=== PATIENT | male | born 1975 | race Caucasian/White ===

== ENCOUNTER → 2024-09-27 | Outpatient (CLI) | payer OTHER, SELFPAY ==
[2024-09-27 15:03] LABS: Collection Type, Urine Clean Catch; Squamous Epithelial Cell,Urine 0 /hpf (0-5)
[2024-09-27 15:41] LABS: Basophils # (Auto) 0.1 Thou/mm3 (0.0-0.2); Basophils % (Auto) 1 % (0-2.5); Eosinophils # (Auto) 0.1 Thou/mm3 (0.0-0.5); Eosinophils % (Auto) 2 % (0-10); Hematocrit 45.1 % (41.0-53.0); Hemoglobin 15.5 g/dL (13.5-16.0); Immature Granulocytes % (Auto) 0 % (0-0); Immature Granulocytes Auto 0.01 Thou/mm3 (0.00-0.00); Lymphocytes # (Auto) 2.5 Thou/mm3 (1.0-4.8); Lymphocytes % (Auto) 33 % (10-50); Mean Corpuscular HGB Conc 34.4 g/dl (31.0-37.0); Mean Corpuscular Hemoglobin 29.9 pg (25.0-35.0); Mean Corpuscular Volume 87 fL (80-100); Monocytes # (Auto) 0.5 Thou/mm3 (0.0-0.8); Monocytes % (Auto) 6 % (0-12); Neutrophils # (Auto) 4.4 Thou/mm3 (1.8-7.7); Neutrophils % (Auto) 58 % (37-80); Nucleated Red Blood Cell % 0 /100 WBC (0); Platelet Count 319 Thou/mm3 (140-440); RDW Standard Deviation 43.9 fL (35.1-43.9); Red Blood Count 5.19 Miln/mm3 (4.50-5.90); White Blood Count 7.6 Thou/mm3 (3.8-10.6)
[2024-09-27 15:47] LABS: Bilirubin,Urine Negative (Negative); Blood,Urine Negative (Negative); Clarity,Urine Clear (Clear/Hazy); Color,Urine Colorless (Lt Yel-Yel); Culture Indicated,Urine Not Indicated; Glucose, Urine Negative (Negative); Ketones,Urine Negative (Negative); Leukocyte Esterase,Urine Negative (Negative); Nitrite,Urine Negative (Negative); PH,Urine 7.5 (5.0-7.0); Protein,Urine Negative (Neg - Trace); RBC,Urine 1 /hpf (0-3); Specific Gravity,Urine 1.007 (1.001-1.035); Urobilinogen,Urine Negative mg/dL (0.0-1.0); WBC,Urine < 1 /hpf (0-5)
[2024-09-27 15:51] LABS: Prostate Specific Antigen 0.34 ng/mL (0-4.00)
[2024-09-27 15:55] LABS: Alanine Aminotransferase 16 U/L (10-49); Albumin, Serum 4.8 gm/dL (3.5-5.0); Albumin/Globulin Ratio 2.2 (1.2-2.2); Alkaline Phosphatase 129 U/L (46-116); Anion Gap 9 (7-16); Aspartate Amino Transferase 22 U/L (0-34); BUN/Creatinine Ratio 9 Ratio (12-20); Bilirubin,Total 0.5 mg/dL (0.3-1.2); Blood Urea Nitrogen 7 mg/dL (9-23); Calcium 9.4 mg/dL (8.3-10.6); Calcium (Corrected) 9.4 mg/dL (8.5-10.1); Carbon Dioxide 28.3 mMol/L (20.0-31.0); Cardiac Risk Estimate 4.1 RATIO (4.0-6.7); Chloride 103 mMol/L (98-107); Cholesterol 217 mg/dL (132-200); Creatinine (Component) 0.8 mg/dL (0.6-1.3); Globulin 2.2 gm/dL (2.3-3.5); Glucose 89 mg/dL (74-106); HDL Cholesterol 53 mg/dL (40-60); LDL Cholesterol,Calculated 134 mg/dL (0-130); Osmolality,Calculated 276 (275-295); Potassium 3.7 mMol/L (3.4-5.1); Sodium 140 mMol/L (136-145); Thyroid Stimulating Hormone 1.11 uIU/mL (0.55-4.78); Triglycerides 150 mg/dL (30-150); Vitamin D 25 Hydroxy Total 19.9 ng/mL (7.3-40.2); eGFR > 60 See Note
[2024-09-27 15:57] LABS: Glucose Estimated Average 108 mg/dL (80-131); Hemoglobin A1C 5.4 % Hgb (4.8-6.0)
== END | disposition home or self-care (01) ==
LOC: COPL 14:21
PROVIDERS: PCP Family Medicine; Referring Provider Registered Nurse; Visit Provider Registered Nurse
DX: Z00.00 Encounter for general adult medical examination without abnormal findings (principal)
CPT/HCPCS: 36415; 80053; 80061; 81001; 82306; 83036; 84153; 84443; 85025

== ENCOUNTER 2025-02-25 15:04 | Inpatient (IN) | payer OTHER, SELFPAY ==
[2025-02-25] VITALS (8 sets, daily range): BP systolic 177–207; BP diastolic 89–118; PULSE 61–89; RESP 16–25; TEMP 36.1–37.2; O2SAT 95–98; BMI 38.7
--- NOTE | 2025-02-25 15:20 | EKG_ITS ---
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
--- NOTE | 2025-02-25 15:20 | XR_ITS ---
Examination: CT brain head without contrast. 2-D sagittal coronal reconstructions Date and time of exam:February 25, 2025 1608 hours INDICATIONS: Onset slurred speech beginning 3 days ago CTDI: vol (mGy):51.4 DLP: (mGycm):1100 Technique: Multiple CT axial sections of the brain have been obtained, 5 mm slice thickness. Contrast has not been administered. 2-D sagittal, coronal reconstructions have been obtained Low dose protocols were performed. One or more of the following dose reduction techniques were used; automated exposure control, adjustment of the mA and/or KV according to patient size, use of iterative reconstruction technique. Findings: No significant ventricular enlargement. 11 mm infarct which may be acute or subacute in the left basal ganglia Intra-axial or extra-axial hemorrhage density is not seen. No mass effect or midline shift Basal cisterns are not remarkable. Fourth ventricle is midline. Cranial vault intact. Impression: Negative for acute hemorrhage, mass effect or midline shift Nonhemorrhagic acute versus subacute 11 mm infarct in the left basal ganglia
--- NOTE | 2025-02-25 15:21 | PD.EDRME ---
Rapid Medical Screening Exam [facility] Arrival date/time: 02/25/25 15:04 50-year-old male with no known medical history presents to the emergency room with a chief complaint of slurred speech, right-sided facial numbness, aphasia x 1 week. at bedside states the signs and symptoms have been going on for the last week and have progressively gotten worse. Patient denies any unilateral numbness. I have greeted and performed a focused initial assessment of this patient. A comprehensive ED assessment and evaluation of the patient, analysis of all test results, and completion of the medical decision making process will be conducted by additional ED providers. Chief Complaint: Head Injury Time Seen by Provider: 02/25/25 15:15 Vital signs: Vital Signs Temperature 98.6 F 02/25/25 15:15 Pulse Rate 67 02/25/25 15:15 Respiratory Rate 18 02/25/25 15:15 Blood Pressure 178/96 H 02/25/25 15:15 Pulse Oximetry (%) 96 02/25/25 15:15 Oxygen Delivery Method Room Air 02/25/25 15:15 Vital signs reviewed by provider: Yes
[2025-02-25 15:40] LABS: Basophils # (Auto) 0.1 Thou/mm3 (0.0-0.2); Basophils % (Auto) 1 % (0-2.5); Eosinophils # (Auto) 0.3 Thou/mm3 (0.0-0.5); Eosinophils % (Auto) 3 % (0-10); Hematocrit 43.3 % (41.0-53.0); Hemoglobin 15.4 g/dL (13.5-16.0); Immature Granulocytes % (Auto) 0 % (0-0); Immature Granulocytes Auto 0.03 Thou/mm3 (0.00-0.00); Lymphocytes # (Auto) 2.8 Thou/mm3 (1.0-4.8); Lymphocytes % (Auto) 30 % (10-50); Mean Corpuscular HGB Conc 35.6 g/dl (31.0-37.0); Mean Corpuscular Hemoglobin 30.5 pg (25.0-35.0); Mean Corpuscular Volume 86 fL (80-100); Monocytes # (Auto) 0.4 Thou/mm3 (0.0-0.8); Monocytes % (Auto) 5 % (0-12); Neutrophils # (Auto) 5.7 Thou/mm3 (1.8-7.7); Neutrophils % (Auto) 61 % (37-80); Nucleated Red Blood Cell % 0 /100 WBC (0); Platelet Count 316 Thou/mm3 (140-440); RDW Standard Deviation 45.5 fL (35.1-43.9); Red Blood Count 5.05 Miln/mm3 (4.50-5.90); White Blood Count 9.3 Thou/mm3 (3.8-10.6)
[2025-02-25 15:52] LABS: Collection Type, Urine Clean Catch; Squamous Epithelial Cell,Urine 0 /hpf (0-5)
[2025-02-25 15:53] LABS: Partial Thromboplastin Time 28.3 Seconds (22.0-36.0); Prothrombin Time 10.9 Seconds (9.0-12.2)
[2025-02-25 15:55] LABS: B-Type Natriuretic Peptide 41 pg/mL (0-100)
[2025-02-25 16:01] LABS: Bacteria,Urine Rare; Bilirubin,Urine 1+ (Negative); Blood,Urine Negative (Negative); Clarity,Urine Clear (Clear/Hazy); Color,Urine Yellow (Lt Yel-Yel); Glucose, Urine Negative (Negative); Hyaline Casts,Urine 1 /hpf (0-1); Ketones,Urine Trace (Negative); Leukocyte Esterase,Urine Negative (Negative); Nitrite,Urine Negative (Negative); Protein,Urine 1+ (Neg - Trace); RBC,Urine 6 /hpf (0-3); Specific Gravity,Urine 1.035 (1.001-1.035); WBC,Urine 3 /hpf (0-5)
[2025-02-25 16:03] LABS: Amphetamine/Methamp Scrn,U Negative (Negative); Barbiturate Screen,Urine Negative (Negative); Benzodiazepines Screen,Urine Negative (Negative); Benzoylecgonine Screen, Ur Negative (Negative); Fentanyl Screen,Urine Negative (Negative); Opiate Screen,Urine Negative (Negative); THC Screen,Urine Negative (Negative)
[2025-02-25 16:15] LABS: Alanine Aminotransferase 21 U/L (10-49); Albumin, Serum 4.4 gm/dL (3.5-5.0); Albumin/Globulin Ratio 1.7 (1.2-2.2); Alkaline Phosphatase 135 U/L (46-116); Anion Gap 10 (7-16); Aspartate Amino Transferase 22 U/L (0-34); BUN/Creatinine Ratio 9 Ratio (12-20); Bilirubin,Total 0.6 mg/dL (0.3-1.2); Blood Urea Nitrogen 10 mg/dL (9-23); Calcium 8.3 mg/dL (8.3-10.6); Calcium (Corrected) 8.3 mg/dL (8.5-10.1); Carbon Dioxide 28.2 mMol/L (20.0-31.0); Chloride 107 mMol/L (98-107); Creatinine (Component) 1.1 mg/dL (0.6-1.3); Estimated Creatinine Clearance 91.9 mL/min (>60); Globulin 2.6 gm/dL (2.3-3.5); Glucose 127 mg/dL (74-106); Osmolality,Calculated 289 (275-295); Potassium 3.5 mMol/L (3.4-5.1); Sodium 145 mMol/L (136-145); eGFR > 60 See Note
[2025-02-25 16:20] LABS: Troponin I 0.168 ng/mL (0.0-0.045)
--- NOTE | 2025-02-25 16:46 | PD.EDNEURO ---
Neuro Symptoms Deficit-RME/HPI General Chief Complaint: Head Injury Stated Complaint: LEFT FACIAL NUMBNESS / TINGLING X 2 DAYS; SLOW COG Time Seen by Provider: 02/25/25 15:15 Arrival date/time: 02/25/25 15:04 RME / HPI RME / HPI Narrative: 02/25/25 15:04 50-year-old male with no known medical history presents to the emergency room with a chief complaint of slurred speech, right-sided facial numbness, aphasia x 1 week. at bedside states the signs and symptoms have been going on for the last week and have progressively gotten worse. Patient denies any unilateral numbness. I have greeted and performed a focused initial assessment of this patient. A comprehensive ED assessment and evaluation of the patient, analysis of all test results, and completion of the medical decision making process will be conducted by additional ED providers. DR. PASCUAL MAIN ED EVALUATION: 50 year old male presents to the ED for evaluation of word-finding difficulties that began 3?4 days ago. His reports that due to their busy and long hour work schedules, they have limited interactions throughout the week. She first noticed on Friday that the patient was quieter than usual but attributed it to a possible bad day at work. On Friday, the patient remained unusually withdrawn, and on , he went golfing as planned without any reported concerns. Today, during their day off together, his noticed patient seemed off. She specifically noted difficulties with finding words and also noticed right-sided facial drooping. While in the ED, the patient reports only experiencing word-finding difficulties and denies any associated changes in speech fluency, vision, gait, or driving ability. He also denies any episodes of confusion or altered mental status. Patient denies any history of similar symptoms. He admits to tobacco use. Related Data Allergies Allergy/AdvReac Type Severity Reaction Status Date / Time No Known Allergies Allergy Verified 02/25/25 15:07 Review of Systems Review of Systems Systems Reviewed: All systems reviewed, normal except as documented Past Medical History Social History SMOKING STATUS: Never smoker Course Quality Measures none Orders Category Date Time Status Admit to Inpatient Status Routine Admission 02/25/25 17:52 Active Patient Condition Routine Admission 02/25/25 17:51 Ordered Aspiration precautions NOW Care 02/25/25 17:54 Active Pharm Tech now Care 02/25/25 17:51 Active Continuous Pulse Oximetry QSHIFT Care 02/25/25 17:51 Active EKG (ED ONLY) *Do not use* NOW Care 02/25/25 15:20 Completed MRI Screening NOW Care 02/25/25 17:57 Active NPO NOW Care 02/25/25 17:51 Active Neuro Check Q4H Care 02/25/25 17:53 Active Nurse Swallow Screen x1 Care 02/25/25 17:51 Active Sequential Compression Device QSHIFT Care 02/25/25 18:00 Active Consult to Neurology / Tele-Neurology Routine Cons 02/25/25 17:59 Active Referral Physical Therapy Routine Cons 02/25/25 18:00 Active Referral Speech Therapy Routine Cons 02/25/25 18:00 Active Diet NPO (NOW) Diet 02/25/25 17:51 Active CA echo doppler complete Routine Exams 02/25/25 17:[address] head/brain wo con Stat Exams 02/25/25 15:20 Completed EKG (ED Only) Stat Exams 02/25/25 15:20 Draft MR stroke protocol Stat Exams 02/25/25 17:57 Ordered B-Type Natriuretic Peptide Stat Lab 02/25/25 15:29 Completed CBC AM DRAW Lab 02/26/25 05:00 Ordered CBC AM DRAW Lab 02/27/25 05:00 Ordered CBC AM DRAW Lab 02/28/25 05:00 Ordered CBC Stat Lab 02/25/25 15:29 Completed CMP [Comprehensive Metabolic Panel] AM DRAW Lab 02/26/25 05:00 Ordered CMP [Comprehensive Metabolic Panel] AM DRAW Lab 02/27/25 05:00 Ordered CMP [Comprehensive Metabolic Panel] AM DRAW Lab 02/28/25 05:00 Ordered Comprehensive Metabolic Panel Stat Lab 02/25/25 15:29 Completed Drug Screen,Urine Stat Lab 02/25/25 15:42 Completed Glycohemoglobin w (eAG) Routine Lab 02/25/25 17:54 Ordered Lipid Panel Routine Lab 02/25/25 17:54 Ordered Magnesium AM DRAW Lab 02/26/25 05:00 Ordered Magnesium Stat Lab 02/25/25 15:29 Completed Partial Thromboplastin Time Stat Lab 02/25/25 15:29 Completed Phosphorous AM DRAW Lab 02/26/25 05:00 Ordered Phosphorous AM DRAW Lab 02/27/25 05:00 Ordered Phosphorous AM DRAW Lab 02/28/25 05:00 Ordered Prothrombin Time with INR Stat Lab 02/25/25 15:29 Completed Thyroid Stimulating Hormone Routine Lab 02/26/25 18:03 Ordered Troponin I Q6H Lab 02/25/25 17:54 Ordered Troponin I Q6H Lab 02/26/25 00:00 Ordered Troponin I Stat Lab 02/25/25 15:29 Completed Urinalysis Stat Lab 02/25/25 15:42 Completed Acetaminophen Tab [Tylenol Tab] Med 02/25/25 18:00 Active 650 mg PO Q6H PRN Aspirin [Ecotrin] Med 02/25/25 18:00 Active 81 mg PO QDAY Atorvastatin Calcium [Lipitor] Med 02/25/25 21:00 Active 40 mg PO HS Clopidogrel [Plavix] Med 02/26/25 09:00 Active 75 mg PO QDAY NIFEdipine [Procardia Xl] Med 02/26/25 09:00 Active 30 mg PO QDAY Ondansetron Inj [Zofran Inj] Med 02/25/25 17:51 Active 4 mg IV Q4HR PRN Ringers Lactated 1000 ml [Lactated Ringers] 1,000 ml Med 02/25/25 18:00 Active IV 80 mls/hr hydrALAZINE INJ [Apresoline Inj] Med 02/25/25 18:00 Discontinued 10 mg IV X1 ONE Code Status Routine Oth 02/25/25 17:51 Ordered Vital Signs Vital signs: Vital Signs Temperature 98.6 F 02/25/25 15:15 Pulse Rate 67 02/25/25 15:15 Respiratory Rate 18 02/25/25 15:15 Blood Pressure 178/96 H 02/25/25 15:15 Pulse Oximetry (%) 96 02/25/25 15:15 Oxygen Delivery Method Room Air 02/25/25 15:15 Pulse ox is 96% on room air which is adequate. Neuro Symptoms / Deficit MDM Narrative MDM Narrative:: Allie Currie am scribing for and in the presence of Dr. Pascual. Patient data External records reviewed:: [facility] previous records (No previous ED visits for review ) Clinical information provided by:: patient and spouse ( adds to hpi ) Social determinants that could affect healthcare access:: none Patient has the following chronic illnesses:: No chronic medical hx reported How is presenting disease/condition affected by chronic disease/condition?: no chronic disease Evaluation data The following diagnostics were reviewed and interpreted by me:: lab results, radiology exam(s) and EKG tracing(s) Lab and/or radiology exams considered but not ordered:: None Interpretation Summary: Ordering Physician: Portillo Dukes Date of Service: 02/25/25 Procedure(s): CT head/brain wo con Accession Number(s): [id number] cc: Portillo Dukes; Jose A Vazquez MD~ Examination: CT brain head without contrast. 2-D sagittal coronal reconstructions Date and time of exam:February 25, 2025 1608 hours INDICATIONS: Onset slurred speech beginning 3 days ago CTDI: vol (mGy):51.4 DLP: (mGycm):1100 Technique: Multiple CT axial sections of the brain have been obtained, 5 mm slice thickness. Contrast has not been administered. 2-D sagittal, coronal reconstructions have been obtained Low dose protocols were performed. One or more of the following dose reduction techniques were used; automated exposure control, adjustment of the mA and/or KV according to patient size, use of iterative reconstruction technique. Findings: No significant ventricular enlargement. 11 mm infarct which may be acute or subacute in the left basal ganglia Intra-axial or extra-axial hemorrhage density is not seen. No mass effect or midline shift Basal cisterns are not remarkable. Fourth ventricle is midline. Cranial vault intact. Impression: Negative for acute hemorrhage, mass effect or midline shift Nonhemorrhagic acute versus subacute 11 mm infarct in the left basal ganglia Dictated By: Jose A Vazquez MD Signed By: <Electronically signed by Jose A Vazquez MD in OV> 02/25/25 1623 Medications / Prescriptions Medications or Prescriptions considered but not ordered:: None Medication administrations:: Medication Administration History Acetaminophen (Acetaminophen 325 Mg Tablet) 650 mg PO Q6H PRN PRN Reason: PAIN OR FEVER > 100.4 Stop: 03/27/25 17:59 Aspirin (Aspirin Ec 81 Mg Tabec) 81 mg PO QDAY YISSEL Stop: 03/27/25 17:59 Atorvastatin Calcium (Atorvastatin Calcium 20 Mg Tablet) 40 mg PO HS YISSEL Stop: 03/27/25 20:59 Clopidogrel Bisulfate (Clopidogrel Bisulfate 75 Mg Tablet) 75 mg PO QDAY YISSEL Stop: 03/28/25 08:59 Lactated Ringer's (Lactated Ringers) 1,000 mls @ 80 mls/hr IV .[id number] [facility] Stop: 03/27/25 17:59 Nifedipine (Nifedipine Xl 30 Mg Tabcr) 30 mg PO QDAY [facility] Stop: 03/28/25 08:59 Ondansetron HCl (Ondansetron Inj 2 Mg/Ml Inj 2 Ml) 4 mg IV Q4HR PRN PRN Reason: NAUSEA OR VOMITING Stop: 03/27/25 17:50 Discontinued Medications Hydralazine HCl (Hydralazine Inj 20 Mg/Ml Vial) 10 mg IV X1 ONE Stop: 02/25/25 18:01 See above Consultations Consultation(s) initiated? (list below): Yes Consultation #1 (Physician, Specialty, Details): I spoke with resident working with Dr. Meza. Discussed patients PMHx, HPI, ED course, exam findings, labs, and radiology results. Hospitalist team will come evaluate the patient in the ED. Time: 17:03 Diagnosis Neuro Differential Diagnosis: subarachnoid hemorrhage, cerebrovascular accident and transient cerebral ischemia Most likely diagnosis given after review of the tests above:: Basal ganglia infarct Admission Indicated Admission indicated?: indicated Admission Request Was there a request for admission?: Yes Admission Attestation Admission request attestation: Discussed case with [] from Hospitalist service regarding admission. Discussed patients ED course, exam findings, labs, and radiology results. The Hospitalist [agrees,declines] to accept the patient for admission. Disposition Plan Disposition Plan: Admit Critical Care Time Critical Care Time Critical Care Time: Yes Total Critical Care Time (min.): 35 Attestation: Reviewed with hospitalist team Discharge Plan Plan Patient Disposition: Admit Acute Care w/in Hospital Patient condition on transfer: Stable Problem List Clinical Impression: Basal ganglia infarction Patient/Caregiver Discharge Instructions Print Language: Kiswahili Stand Alone Forms: [facility]kie Award Info., Patient Portal Info Letter
--- NOTE | 2025-02-25 17:13 | PC.NURSE ---
PATIENT CAME TO ED WITH C/O HAVING APHASIA THAT STARTED 3 DAYS AGO. PATIENT STATED SHE ALSO NOTICED A SLIGHT DROOP ON HIS FACE. PATIENT STATES HE HAS HX OF HTN BUT DOES NOT TAKE ANY MEDS. PATIENT GCS 15 IN NO SIGNS OF ACUTE DISTRESS AT THIS TIME. IN ROOM ON [facility] CONNECTED TO MONITORS. ED DR BAUTISTA SPEAK WITH PATIENT.
--- NOTE | 2025-02-25 17:20 | PC.NURSE ---
DR BRAR AT BEDSIDE
--- NOTE | 2025-02-25 18:04 | ESHP_ITS ---
Documentation for date of: 02/25/25 [facility] History of Present Illness History of present illness: Romulo Gusman is a 50-year-old male with a past medical history of hypertension not on medications and hyperlipidemia who presents to the ED on 02/25 after experiencing difficulty finding words and fatigue that started two days ago. Patient's at bedside to help provide additional history. Patient states that while at work, he began to experience difficulty word finding and his co- workers state with an associated headache and that he had become more quiet after difficulty with word finding started. He denies any paresthesias, motor symptoms, or facial droop. However, states that she may have noticed some facial droop today while the patient was talking to her and because difficulty with word finding got worse, she brought him to the ED. In the ED, vital signs significant for BP 207/118, HR 67, RR 18, afebrile, and breathing comfortably on room air. CBC and chem panel largely unremarkable, other than mildly elevated ALP of 135 and troponin 0.168. Urine toxicology negative. UA showed 1+ protein, 1+ bilirubin, and rare bacteria. CT head significant for nonhemorrhagic acute versus subacute 11 mm infarct in the left basal ganglia. EKG showed NSR. PMHx: hypertension, hyperlipidemia Medications: none FHx: N/A, patient was adopted SHx: smokes cigarettes and drinks beers socially on weekends, denies illicit drug use Review of Systems Review of Systems Systems Reviewed: All systems reviewed, normal except as documented Exam Vital Signs Temp Pulse Resp BP Pulse Ox O2 Del Method 98.5 F 66 18 183/102 H 98 Room Air 02/25/25 16:52 02/25/25 16:52 02/25/25 16:52 02/25/25 16:52 02/25/25 16:52 02/25/25 16:52 Narrative Exam General: AOx3, no acute distress, able to speak full sentences but difficulty with word finding HEENT: NC/AT, mucous membranes moist, bilateral sclera anicteric Cardiovascular: regular rate and rhythm, S1/S2 present, no murmurs appreciated Pulmonary: clear to auscultation bilaterally, no rales/rhonchi/wheezes Abdominal: soft, non-tender, non-distended, no rebound/guarding, normal bowel sounds present Musculoskeletal: normal ROM, no peripheral edema Skin: warm and dry, intact, no rashes Neuro: CN II-XII intact, no focal deficits Results: Labs 02/26/25 04:40 02/26/25 04:40 Labs: Short CBC 02/25/25 Range/Units 15:29 WBC 9.3 (3.8-10.6) Thou/mm3 Hgb 15.4 (13.5-16.0) g/dL Hct 43.3 (41.0-53.0) % Plt Count 316 (140-440) Thou/mm3 BMP 02/25/25 15:29 Sodium 145 Potassium 3.5 Chloride 107 Carbon Dioxide 28.2 BUN 10 Creatinine 1.1 Glucose 127 H Calcium 8.3 Cardiac Enzymes 02/25/25 Range/Units 15:29 Troponin I 0.168 H* (0.0-0.045) ng/mL Liver Function 02/25/25 Range/Units 15:29 Total Bilirubin 0.6 (0.3-1.2) mg/dL AST 22 (0-34) U/L ALT 21 (10-49) U/L Alkaline Phosphatase 135 H (46-116) U/L Albumin 4.4 (3.5-5.0) gm/dL Urine 02/25/25 Range/Units 15:42 Urine Color Yellow (Lt Yel-Yel) Urine Clarity Clear (Clear/Hazy) Urine pH 6.0 (5.0-7.0) Ur Specific [place] 1.035 (1.001-1.035) Urine Protein 1+ A (Neg - Trace) Urine Glucose (UA) Negative (Negative) Quality Measures Quality Measures none Medications Home Medications and Allergies Home Medications ?Medication ?Instructions ?Recorded ?Confirmed ?Type No Known Home Medications 02/25/25 0512/21 History Allergies Allergy/AdvReac Type Severity Reaction Status Date / Time No Known Allergies Allergy Verified 02/25/25 15:07 Visit Medications Aspirin (Aspirin Ec 81 Mg Tabec) 81 mg PO QDAY YISSEL Stop: 03/27/25 17:59 Atorvastatin Calcium (Atorvastatin Calcium 20 Mg Tablet) 40 mg PO HS [facility] Stop: 03/27/25 20:59 Clopidogrel Bisulfate (Clopidogrel Bisulfate 75 Mg Tablet) 75 mg PO QDAY YISSEL Stop: 03/28/25 08:59 Nifedipine (Nifedipine Xl 30 Mg Tabcr) 30 mg PO QDAY YISSEL Stop: 03/28/25 08:59 Ondansetron HCl (Ondansetron Inj 2 Mg/Ml Inj 2 Ml) 4 mg IV Q4HR PRN PRN Reason: NAUSEA OR VOMITING Stop: 03/27/25 17:50 Discontinued Medications Hydralazine HCl (Hydralazine Inj 20 Mg/Ml Vial) 10 mg IV X1 ONE Stop: 02/25/25 18:01 Assessment & Plan Plan Romulo Gusman is a 50-year-old male with a past medical history of hypertension not on medications and hyperlipidemia who presents to the ED on 02/25 after experiencing difficulty finding words and fatigue that started two days ago. Found to have acute/subacute infarct in left basal ganglia on CT head and admitted for further work-up. #CVA #Subacute infarct of left basal ganglia Presents with difficulty finding words and fatigue that started two days ago. CT head showed subacute infarct of left basal ganglia. Also presented with hypertensive crisis with BP of 200s/100s upon evaluation in ED and suspect that may have likely played part in patient's presentation. - In-house neurology consulted, appreciate recommendations - MRI brain - Aspirin 81 mg daily, plavix 75 mg daily, atorvastatin 80 mg daily - LR at 80 cc/hr - Follow-up lipid panel, A1c, TSH - Follow-up cardiac echo - If pass nurse bedside swallow can give PO meds - Aspiration precautions - Neurocheck q4h - NPO until speech evaluation - Physical therapy #Hypertensive crisis #History of hypertension, not on medications Presented with BP 200s/100s and troponins 0.168 with slight uptrend to 0.170. Gave hydralazine 10 mg IV x1 - Goal blood pressure of 160-180 - Nifedipine 30 mg PO daily starting 02/26 #Hyperlipidemia - Atorvastatin 80 mg daily as above Hospital management: Disposition: med tele, pending neuro recs and MRI brain Fluids: LR 80 cc/hr Diet: NPO until speech evaluation Lines: PIV DVT prophylaxis: SCDs GI prophylaxis: not indicated [place]: none CODE STATUS: full code ----- Plan discussed with attending physician Dr. Susana Crane MD PGY-1 Internal Medicine Attending Provider Attestation/Addendum I reviewed labs, imaging, EKG, home medications and prior available records. Face to face evaluation was performed by me. I have personally examined the patient and discussed assessment and plan with the IM team. I reviewed the resident note and agree with the plan with exceptions as below. CVA symptoms, secondary to stroke versus hypertensive encephalopathy Slurred speech Facial droop Left basal ganglia CVA Non-STEMI Hypertensive urgency Start aspirin, Plavix, and atorvastatin Start antihypertensive treatment with SBP goal of 160-180 Trend troponin Follow-up MRI Follow-up echocardiogram PT/OT evaluation Neurology consulted
[2025-02-25] MEDS: ASPIRIN EC 81 MG TABEC PO (18:11)
[2025-02-25] MEDS: hydrALAZINE INJ 20 MG/ML VIAL 10 MG IV (18:11)
[2025-02-25] MEDS: RINGERS LACTATED 1000 ML 1,000 ML 80 ML IV (18:12)
[2025-02-25 18:59] LABS: Glucose Estimated Average 111 mg/dL (80-131); Hemoglobin A1C 5.5 % Hgb (4.8-6.0)
[2025-02-25 19:21] LABS: Cardiac Risk Estimate 4.4 RATIO (4.0-6.7); Cholesterol 211 mg/dL (132-200); HDL Cholesterol 48 mg/dL (40-60); LDL Cholesterol,Calculated 111 mg/dL (0-130); Triglycerides 261 mg/dL (30-150)
[2025-02-25] MEDS: ATORVASTATIN CALCIUM 20 MG TABLET 80 MG PO (20:37)
--- NOTE | 2025-02-25 23:58 | VVCONSULT_ITS ---
Telemedicine visit statement This visit was conducted with the use of interactive audio and video telecommunications system that permits real time communication between the patient and the provider. Patient's verbal consent for virtual visit was obtained on 02/25/25 at 2358. History of Present Illness History of Present Illness History of present illness: Mr. Gusman is a 50-year-old male with hypertension, hyperlipidemia presented to the ER with word finding difficulty and fatigue that started 2 days ago. When he was at work, he began to experience word finding difficulty associated with a headache. His coworkers have noticed that he has become more quiet after struggling to find words. Denies any paresthesias or weakness of upper or lower extremities or facial droop or dizziness or nausea vomiting. He denies any chest pain or shortness of breath. However his has noticed some facial droop today. As the symptoms persisted, patient was brought to the ER to be evaluated. Workup in the ER: Vital signs significant for BP 207/118, HR 67, RR 18, afebrile, and breathing comfortably on room air. Labs: CBC and chem panel:unremarkable, other than mildly elevated ALP of 135 and troponin 0.168. Urine toxicology negative. UA showed 1+ protein, 1+ bilirubin, and rare bacteria. Imaging: CT head significant for nonhemorrhagic acute versus subacute 11 mm infarct in the left basal ganglia. EKG showed NSR. Neurology was consulted to evaluate further. Patient got admitted to telemetry for further workup and management of acute CVA Past Medical History Social History SMOKING STATUS: Never smoker TeleMedicine ROS Pertinent Review of Systems Systems Reviewed: All systems reviewed, normal except as documented Meds Home Medications and Allergies Home Medications ?Medication ?Instructions ?Recorded ?Confirmed ?Type No Known Home Medications 02/25/25 05/0 12/21 History Allergies Allergy/AdvReac Type Severity Reaction Status Date / Time No Known Allergies Allergy Verified 02/25/25 15:07 Virtual exam Vital Signs Temp Pulse Resp BP Pulse Ox O2 Del Method 96.9 F 64 20 189/111 H 96 Room Air 02/25/25 20:36 02/25/25 20:36 02/25/25 20:36 02/25/25 20:36 02/25/25 20:36 02/25/25 20:36 Results Labs 02/25/25 15:29 02/25/25 15:29 Labs: Short CBC 02/25/25 Range/Units 15:29 WBC 9.3 (3.8-10.6) Thou/mm3 Hgb 15.4 (13.5-16.0) g/dL Hct 43.3 (41.0-53.0) % Plt Count 316 (140-440) Thou/mm3 BMP 02/25/25 15:29 Sodium 145 Potassium 3.5 Chloride 107 Carbon Dioxide 28.2 BUN 10 Creatinine 1.1 Glucose 127 H Calcium 8.3 Cardiac Enzymes 02/25/25 02/25/25 Range/Units 15:29 18:32 Troponin I 0.168 H* 0.170 H* (0.0-0.045) ng/mL Liver Function 02/25/25 Range/Units 15:29 Total Bilirubin 0.6 (0.3-1.2) mg/dL AST 22 (0-34) U/L ALT 21 (10-49) U/L Alkaline Phosphatase 135 H (46-116) U/L Albumin 4.4 (3.5-5.0) gm/dL Urine 02/25/25 Range/Units 15:42 Urine Color Yellow (Lt Yel-Yel) Urine Clarity Clear (Clear/Hazy) Urine pH 6.0 (5.0-7.0) Ur Specific [place] 1.035 (1.001-1.035) Urine Protein 1+ A (Neg - Trace) Urine Glucose (UA) Negative (Negative) Assessment & Plan Problem List (1) Basal ganglia infarction: Status: Acute Assessment and plan: Patient presented with a disfluency,, facial droop and slurred speech CT head showed acute infarction involving the left basal ganglia Continue with close monitoring with frequent neurochecks Rest of the workup including MRI brain, echocardiogram, lipid panel Continue with aspirin 81 mg, Plavix 75 mg and statin. Continue with permissive blood pressure control for 24 hours Speech therapy evaluation and management (2) Hypertension: Status: Chronic Assessment and plan: Continue with permissive blood pressure control for another 24 hours (3) Hyperlipidemia: Status: Chronic Assessment and plan: Continue with statin Follow-up with a lipid panel
[2025-02-26] VITALS (7 sets, daily range): BP systolic 150–181; BP diastolic 92–119; PULSE 60–72; RESP 17–21; TEMP 36.1–36.7; O2SAT 96–98; BMI 37.8
--- NOTE | 2025-02-26 | XR_ITS ---
Examinations: MRI Brain without intravenous contrast. MRA brain without intravenous contrast. MRA carotids without intravenous contrast 3-D vascular reconstructions Date and time of exam: February 26, 2025, 1633 hours INDICATIONS: Onset focal neurologic deficits, generalized body weakness, facial droop, difficulty finding words beginning yesterday Technique: Multiple axial and sagittal images of the brain have been obtained MRA brain carotid images without contrast obtained, including 3-D postprocessing, vascular maximum intensity projection images Findings: [place] is not enlarged. The optic chiasm and infundibular stalk are not remarkable. Prepontine and interpeduncular cisterns are not enlarged. No localized enlargement of the medulla or emily. Fourth ventricle and cerebellar tonsils normal in position. Subacute hemorrhage is not seen. Fourth ventricle is midline. Mass in the cerebellopontine angle region is not evident. 7th and 8th nerve complexes exhibits symmetry. Globes are symmetrical with no retro-orbital mass. Increased white matter signal moderate Diffusion-weighted images demonstrate 15 mm focus restricted diffusion left basal ganglia Mass-effect upon the ventricular system is not identified. MRA carotid images no significant carotid stenoses. MRA brain images no cerebral large vessel arterial occlusions Impression: 15 mm acute nonhemorrhagic infarct left basal ganglia
[2025-02-26 01:15] LABS: Troponin I 0.175 ng/mL (0.0-0.045)
[2025-02-26 05:37] LABS: Basophils # (Auto) 0.1 Thou/mm3 (0.0-0.2); Basophils % (Auto) 1 % (0-2.5); Eosinophils # (Auto) 0.3 Thou/mm3 (0.0-0.5); Eosinophils % (Auto) 4 % (0-10); Hematocrit 45.2 % (41.0-53.0); Hemoglobin 15.7 g/dL (13.5-16.0); Immature Granulocytes % (Auto) 0 % (0-0); Immature Granulocytes Auto 0.03 Thou/mm3 (0.00-0.00); Lymphocytes # (Auto) 2.9 Thou/mm3 (1.0-4.8); Lymphocytes % (Auto) 38 % (10-50); Mean Corpuscular HGB Conc 34.7 g/dl (31.0-37.0); Mean Corpuscular Hemoglobin 30.7 pg (25.0-35.0); Mean Corpuscular Volume 88 fL (80-100); Monocytes # (Auto) 0.6 Thou/mm3 (0.0-0.8); Monocytes % (Auto) 7 % (0-12); Neutrophils # (Auto) 3.9 Thou/mm3 (1.8-7.7); Neutrophils % (Auto) 50 % (37-80); Nucleated Red Blood Cell % 0 /100 WBC (0); Platelet Count 273 Thou/mm3 (140-440); RDW Standard Deviation 46.8 fL (35.1-43.9); Red Blood Count 5.12 Miln/mm3 (4.50-5.90); White Blood Count 7.7 Thou/mm3 (3.8-10.6)
[2025-02-26 05:59] LABS: Alanine Aminotransferase 19 U/L (10-49); Albumin, Serum 4.4 gm/dL (3.5-5.0); Albumin/Globulin Ratio 1.8 (1.2-2.2); Alkaline Phosphatase 121 U/L (46-116); Anion Gap 9 (7-16); Aspartate Amino Transferase 20 U/L (0-34); BUN/Creatinine Ratio 12 Ratio (12-20); Bilirubin,Total 1.1 mg/dL (0.3-1.2); Blood Urea Nitrogen 11 mg/dL (9-23); Calcium 8.5 mg/dL (8.3-10.6); Calcium (Corrected) 8.5 mg/dL (8.5-10.1); Chloride 107 mMol/L (98-107); Creatinine (Component) 0.9 mg/dL (0.6-1.3); Estimated Creatinine Clearance 110.9 mL/min (>60); Globulin 2.4 gm/dL (2.3-3.5); Glucose 104 mg/dL (74-106); Osmolality,Calculated 289 (275-295); Potassium 3.5 mMol/L (3.4-5.1); Sodium 146 mMol/L (136-145); Total Protein 6.8 gm/dL (5.7-8.2); eGFR > 60 See Note
[2025-02-26 08:50] LABS: Troponin I 0.171 ng/mL (0.0-0.045)
--- NOTE | 2025-02-26 09:11 | ESPR_ITS ---
Documentation for date of: 02/26/25 Subjective Subjective Interval history: No acute overnight events. Seen and examined at bedside in telemetry and patient does not have any complaints. Denies new onset paresthesias, muscle weakness, facial droop, worsening of disfluency. Vital signs stable, CBC unremarkable, CHEM panel showed A1c of 5.5%, lipid panel showed triglycerides 261, cholesterol 211, LDL 111, HDL 48, and troponin peaked at 0.175 since downtrended. Pending echo, MRI, speech evaluation, and physical therapy. Exam Vital Signs Temp Pulse Resp BP Pulse Ox O2 Del Method 97.2 F 66 18 150/115 H 98 Room Air 02/26/25 08:00 02/26/25 08:00 02/26/25 08:00 02/26/25 08:00 02/26/25 08:00 02/26/25 08:00 Narrative Exam General: AOx3, no acute distress, able to speak full sentences but difficulty with word finding HEENT: NC/AT, mucous membranes moist, bilateral sclera anicteric Cardiovascular: regular rate and rhythm, S1/S2 present, no murmurs appreciated Pulmonary: clear to auscultation bilaterally, no rales/rhonchi/wheezes Abdominal: soft, non-tender, non-distended, no rebound/guarding, normal bowel sounds present Musculoskeletal: normal ROM, no peripheral edema Skin: warm and dry, intact, no rashes Neuro: CN II-XII intact, no focal deficits Objective Labs 02/27/25 06:24 02/27/25 06:24 Labs: Laboratory Results - last 24 hr 02/25/25 02/25/25 02/25/25 15:29 15:42 18:32 WBC 9.3 RBC 5.05 Hgb 15.4 Hct 43.3 MCV 86 MCH 30.5 MCHC 35.6 RDW Std Deviation 45.5 H Plt Count 316 Neut % (Auto) 61 Lymph % (Auto) 30 [place] % (Auto) 5 Eos % (Auto) 3 Baso % (Auto) 1 Neut # (Auto) 5.7 Lymph # (Auto) 2.8 [place] # (Auto) 0.4 Eos # (Auto) 0.3 Baso # (Auto) 0.1 Immature Gran # (Auto) 0.03 H Absolute Nucleated RBC 0.00 Immature Gran % 0 Nucleated RBC % 0 PT 10.9 INR 1.0 APTT 28.3 Sodium 145 Potassium 3.5 Chloride 107 Carbon Dioxide 28.2 Anion Gap 10 BUN 10 Creatinine 1.1 Estim Creat Clear Calc 91.9 eGFR > 60 BUN/Creatinine Ratio 9 L Glucose [address] Glu mg/dL 111 Hemoglobin A1c 5.5 Calculated Osmolality 289 Calcium 8.3 Corrected Calcium 8.3 L Phosphorus Magnesium 2.0 Total Bilirubin 0.6 AST 22 ALT 21 Alkaline Phosphatase 135 H Troponin I 0.168 H* 0.170 H* B-Natriuretic Peptide 41 Total Protein 7.0 Albumin 4.4 Globulin 2.6 Albumin/Globulin Ratio 1.7 Triglycerides 261 H Cholesterol 211 H LDL Cholesterol, Calc 111 HDL Cholesterol 48 Cholesterol/HDL Ratio 4.4 Ur Collection Type Clean Catch Urine Color Yellow Urine Clarity Clear Urine pH 6.0 Ur Specific [place] 1.035 Urine Protein 1+ A Urine Glucose (UA) Negative Urine Ketones Trace Urine Blood Negative Urine Nitrite Negative Urine Bilirubin 1+ A Urine Urobilinogen (Auto) 4.0 Ur Leukocyte Esterase Negative Urine RBC 6 H Urine WBC 3 Ur Squamous Epith Cells 0 Urine Bacteria Rare Hyaline Casts 1 Urine Opiates Screen Negative Urine Fentanyl Screen Negative Ur Barbiturates Screen Negative U Amphetamin/Meth Scrn Negative U Benzodiazepines Scrn Negative U Cocaine Metab Screen Negative U Marijuana (THC) Screen Negative 02/26/25 02/26/25 02/26/25 00:22 04:40 08:15 WBC 7.7 RBC 5.12 Hgb 15.7 Hct 45.2 MCV 88 MCH 30.7 MCHC 34.7 RDW Std Deviation 46.8 H Plt Count 273 D Neut % (Auto) 50 Lymph % (Auto) 38 [place] % (Auto) 7 Eos % (Auto) 4 Baso % (Auto) 1 Neut # (Auto) 3.9 Lymph # (Auto) 2.9 [place] # (Auto) 0.6 Eos # (Auto) 0.3 Baso # (Auto) 0.1 Immature Gran # (Auto) 0.03 H Absolute Nucleated RBC 0.00 Immature Gran % 0 Nucleated RBC % 0 PT INR APTT Sodium 146 H Potassium 3.5 Chloride 107 Carbon Dioxide 30.0 Anion Gap 9 BUN 11 Creatinine 0.9 Estim Creat Clear Calc 110.9 eGFR > 60 BUN/Creatinine Ratio [address] Glu mg/dL Hemoglobin A1c Calculated Osmolality 289 Calcium 8.5 Corrected Calcium 8.5 Phosphorus 3.0 Magnesium 2.0 Total Bilirubin 1.1 D AST 20 ALT 19 Alkaline Phosphatase 121 H Troponin I 0.175 H* 0.171 H* B-Natriuretic Peptide Total Protein 6.8 Albumin 4.4 Globulin 2.4 Albumin/Globulin Ratio 1.8 Triglycerides Cholesterol LDL Cholesterol, Calc HDL Cholesterol Cholesterol/HDL Ratio Ur Collection Type Urine Color Urine Clarity Urine pH Ur Specific [place] Urine Protein Urine Glucose (UA) Urine Ketones Urine Blood Urine Nitrite Urine Bilirubin Urine Urobilinogen (Auto) Ur Leukocyte Esterase Urine RBC Urine WBC Ur Squamous Epith Cells Urine Bacteria Hyaline Casts Urine Opiates Screen Urine Fentanyl Screen Ur Barbiturates Screen U Amphetamin/Meth Scrn U Benzodiazepines Scrn U Cocaine Metab Screen U Marijuana (THC) Screen Quality Measures Quality Measures none Assessment & Plan Assessment Current Active Medications: Generic Name Dose Route Start Last Admin Trade Name Freq PRN Reason Stop Dose Admin Acetaminophen 650 mg 02/25/25 18:00 Acetaminophen 325 Mg Tablet PO 03/27/25 17:59 Q6H PRN PAIN OR FEVER > 100.4 Aspirin 81 mg 02/25/25 18:00 02/25/25 18:11 Aspirin Ec 81 Mg Tabec PO 03/27/25 17:59 81 mg QDAY YISSEL Administration Atorvastatin Calcium 80 mg 02/25/25 21:00 02/25/25 20:37 Atorvastatin Calcium 20 Mg Tablet PO 03/27/25 20:59 80 mg HS YISSEL Administration Clopidogrel Bisulfate 75 mg 02/26/25 09:00 Clopidogrel Bisulfate 75 Mg Tablet PO 03/28/25 08:59 QDAY YSISEL Lactated Ringer's 1,000 mls @ 80 mls/hr 02/25/25 18:00 02/25/25 18:12 Lactated Ringers IV 03/27/25 17:59 80 mls/hr .[id number] YISSEL Administration Nifedipine 30 mg 02/26/25 09:00 Nifedipine Xl 30 Mg Tabcr PO 03/28/25 08:59 QDAY YISSEL Ondansetron HCl 4 mg 02/25/25 17:51 Ondansetron Inj 2 Mg/Ml Inj 2 Ml IV 03/27/25 17:50 Q4HR PRN NAUSEA OR VOMITING Plan Romulo Gusman is a 50-year-old male with a past medical history of hypertension not on medications and hyperlipidemia who presents to the ED on 02/25 after experiencing difficulty finding words and fatigue that started two days ago. Found to have acute/subacute infarct in left basal ganglia on CT head and admitted for further work-up. #CVA #Subacute infarct of left basal ganglia Presents with difficulty finding words and fatigue that started two days ago. CT head showed subacute infarct of left basal ganglia. Also presented with hypertensive crisis with BP of 200s/100s upon evaluation in ED and suspect that may have likely played part in patient's presentation. - In-house neurology consulted, appreciate recommendations - Aspirin 81 mg daily, plavix 75 mg daily, atorvastatin 80 mg daily - Follow-up MRI brain, echo, TSH, speech evaluation, physical therapy - LR at 80 cc/hr - If pass nurse bedside swallow can give PO meds - Aspiration precautions - Neurocheck q4h #Hypertensive crisis #History of hypertension, not on medications Presented with BP 200s/100s and troponins 0.168 with slight uptrend to 0.170. Gave hydralazine 10 mg IV x1 - Goal blood pressure of 160-180 - Nifedipine 30 mg PO daily starting 02/26 #Hyperlipidemia - Atorvastatin 80 mg daily as above Hospital management: Disposition: med tele, pending MRI brain, echo Fluids: LR 80 cc/hr Diet: cardiac Lines: PIV DVT prophylaxis: SCDs GI prophylaxis: not indicated CODE STATUS: full code ----- Plan discussed with attending physician Dr. Susana Crane MD PGY-1 Internal Medicine Attending Provider Attestation/Addendum I reviewed labs, imaging, EKG, home medications and prior available records. Face to face evaluation was performed by me. I have personally examined the patient and discussed assessment and plan with the IM team. I reviewed the resident note and agree with the plan with exceptions as below. CVA symptoms, secondary to stroke versus hypertensive encephalopathy Slurred speech Facial droop Left basal ganglia CVA Non-STEMI Hypertensive urgency Start aspirin, Plavix, and atorvastatin Allowing permissive hypertension Trend troponin: Peaked Follow-up MRI Follow-up echocardiogram PT/OT evaluation Neurology consulted
[2025-02-26] MEDS: CLOPIDOGREL BISULFATE 75 MG TABLET PO (09:29)
[2025-02-26] MEDS: NIFEdipine XL 30 MG TABCR PO (09:29)
[2025-02-26] MEDS: ASPIRIN EC 81 MG TABEC PO (09:29)
[2025-02-26 10:32] LABS: Thyroid Stimulating Hormone 1.08 uIU/mL (0.55-4.78)
[2025-02-26 18:29] LABS: Thyroid Stimulating Hormone 0.64 uIU/mL (0.55-4.78)
[2025-02-26] MEDS: ATORVASTATIN CALCIUM 20 MG TABLET 80 MG PO (20:27)
--- NOTE | 2025-02-26 23:44 | PD.VPROG1 ---
Telemedicine visit statement This visit was conducted with the use of interactive audio and video telecommunications system that permits real time communication between the patient and the provider. Patient's verbal consent for virtual visit was obtained on 02/26/25 at 2344. Documentation for date of: 02/26/25 Subjective Subjective Interval history: Patient is in telemetry. No new symptoms reported or recurrence of similar symptoms after admission. No deficit on exam including the right upper and lower extremity strength and sensation. Denies any headache dizziness nausea vomiting. Virtual exam Vital Signs Temp Pulse Resp BP Pulse Ox O2 Del Method 98.0 F 68 17 160/92 H 96 Room Air 02/26/25 20:00 02/26/25 20:00 02/26/25 20:00 02/26/25 20:00 02/26/25 20:00 02/26/25 20:00 Objective Labs 02/26/25 04:40 02/26/25 04:40 Labs: Laboratory Results - last 24 hr 02/26/25 02/26/25 02/26/25 00:22 04:40 08:15 WBC 7.7 RBC 5.12 Hgb 15.7 Hct 45.2 MCV 88 MCH 30.7 MCHC 34.7 RDW Std Deviation 46.8 H Plt Count 273 D Neut % (Auto) 50 Lymph % (Auto) 38 [place] % (Auto) 7 Eos % (Auto) 4 Baso % (Auto) 1 Neut # (Auto) 3.9 Lymph # (Auto) 2.9 [place] # (Auto) 0.6 Eos # (Auto) 0.3 Baso # (Auto) 0.1 Immature Gran # (Auto) 0.03 H Absolute Nucleated RBC 0.00 Immature Gran % 0 Nucleated RBC % 0 Sodium 146 H Potassium 3.5 Chloride 107 Carbon Dioxide 30.0 Anion Gap 9 BUN 11 Creatinine 0.9 Estim Creat Clear Calc 110.9 eGFR > 60 BUN/Creatinine Ratio 12 Glucose 104 Calculated Osmolality 289 Calcium 8.5 Corrected Calcium 8.5 Phosphorus 3.0 Magnesium 2.0 Total Bilirubin 1.1 D AST 20 ALT 19 Alkaline Phosphatase 121 H Troponin I 0.175 H* 0.171 H* Total Protein 6.8 Albumin 4.4 Globulin 2.4 Albumin/Globulin Ratio 1.8 TSH 1.08 02/26/25 18:00 WBC RBC Hgb Hct MCV MCH MCHC RDW Std Deviation Plt Count Neut % (Auto) Lymph % (Auto) [place] % (Auto) Eos % (Auto) Baso % (Auto) Neut # (Auto) Lymph # (Auto) [place] # (Auto) Eos # (Auto) Baso # (Auto) Immature Gran # (Auto) Absolute Nucleated RBC Immature Gran % Nucleated RBC % Sodium Potassium Chloride Carbon Dioxide Anion Gap BUN Creatinine Estim Creat Clear Calc eGFR BUN/Creatinine Ratio Glucose Calculated Osmolality Calcium Corrected Calcium Phosphorus Magnesium Total Bilirubin AST ALT Alkaline Phosphatase Troponin I Total Protein Albumin Globulin Albumin/Globulin Ratio TSH 0.64 Assessment & Plan Problem List (1) Basal ganglia infarction: Status: Acute Assessment and plan: MRI brain confirmed acute ischemic infarction involving the left basal ganglia. Continue with aspirin along with Plavix for 21 days followed by Plavix alone along with statin for better prophylaxis. Will follow-up with rest of the workup (2) Hypertension: Status: Chronic Assessment and plan: Continue with permissive blood pressure control for another 24 hours (3) Hyperlipidemia: Status: Chronic Assessment and plan: Continue with statin Lipid panel: 111 LDL, 211 total cholesterol and triglycerides 181, HDL 48
[2025-02-27] VITALS: BP 148/91; PULSE 71; RESP 12; TEMP 36.4; O2SAT 98
[2025-02-27 04:00] VITALS: BP 157/98; PULSE 72; RESP 21; TEMP 36.5; O2SAT 99
[2025-02-27 05:33] VITALS: BMI 37.8
[2025-02-27 07:12] LABS: Basophils # (Auto) 0.1 Thou/mm3 (0.0-0.2); Basophils % (Auto) 1 % (0-2.5); Eosinophils # (Auto) 0.2 Thou/mm3 (0.0-0.5); Eosinophils % (Auto) 2 % (0-10); Hematocrit 46.7 % (41.0-53.0); Hemoglobin 15.9 g/dL (13.5-16.0); Immature Granulocytes % (Auto) 0 % (0-0); Immature Granulocytes Auto 0.02 Thou/mm3 (0.00-0.00); Lymphocytes # (Auto) 2.2 Thou/mm3 (1.0-4.8); Lymphocytes % (Auto) 28 % (10-50); Mean Corpuscular Hemoglobin 30.2 pg (25.0-35.0); Mean Corpuscular Volume 89 fL (80-100); Monocytes # (Auto) 0.4 Thou/mm3 (0.0-0.8); Monocytes % (Auto) 5 % (0-12); Neutrophils # (Auto) 4.9 Thou/mm3 (1.8-7.7); Neutrophils % (Auto) 63 % (37-80); Nucleated Red Blood Cell % 0 /100 WBC (0); Platelet Count 314 Thou/mm3 (140-440); RDW Standard Deviation 45.8 fL (35.1-43.9); Red Blood Count 5.26 Miln/mm3 (4.50-5.90); White Blood Count 7.7 Thou/mm3 (3.8-10.6)
[2025-02-27 07:32] LABS: Alanine Aminotransferase 18 U/L (10-49); Albumin, Serum 4.4 gm/dL (3.5-5.0); Albumin/Globulin Ratio 1.8 (1.2-2.2); Alkaline Phosphatase 120 U/L (46-116); Anion Gap 8 (7-16); Aspartate Amino Transferase 18 U/L (0-34); BUN/Creatinine Ratio 12 Ratio (12-20); Bilirubin,Total 1.1 mg/dL (0.3-1.2); Blood Urea Nitrogen 11 mg/dL (9-23); Calcium 8.6 mg/dL (8.3-10.6); Calcium (Corrected) 8.6 mg/dL (8.5-10.1); Carbon Dioxide 26.6 mMol/L (20.0-31.0); Chloride 108 mMol/L (98-107); Creatinine (Component) 0.9 mg/dL (0.6-1.3); Estimated Creatinine Clearance 110.9 mL/min (>60); Globulin 2.5 gm/dL (2.3-3.5); Glucose 104 mg/dL (74-106); Osmolality,Calculated 284 (275-295); Potassium 3.6 mMol/L (3.4-5.1); Sodium 143 mMol/L (136-145); Total Protein 6.9 gm/dL (5.7-8.2); eGFR > 60 See Note
[2025-02-27 08:00] VITALS: BP 158/97; PULSE 60; PULSE 72; RESP 16; TEMP 36.1; O2SAT 94
[2025-02-27] MEDS: CLOPIDOGREL BISULFATE 75 MG TABLET PO (09:08)
[2025-02-27] MEDS: ASPIRIN EC 81 MG TABEC PO (09:08)
--- NOTE | 2025-02-27 10:20 | PD.RESPRO ---
Documentation for date of: 02/27/25 Subjective Subjective Interval history: No acute overnight events. Seen and examined at bedside and patient does not have any complaints, including paresthesias, muscle weakness, facial droop, slurred speech. Patient and state that his speech has improved compared to prior. He has been able to walk around without difficulty. MRI brain confirm left basal ganglia infarct, currently pending echo and physical therapy evaluation. Per neuro recs will continue aspirin and Plavix for 21 days, and then Plavix alone afterwards along with statin. Also recommended to wait for echo prior to discharge. Exam Vital Signs Temp Pulse Resp BP Pulse Ox O2 Del Method 97.0 F 60 16 158/97 H 94 L Room Air 02/27/25 08:00 02/27/25 08:00 02/27/25 08:00 02/27/25 08:00 02/27/25 08:00 02/27/25 08:00 Narrative Exam General: AOx3, no acute distress, able to speak full sentences with disfluency but improved HEENT: NC/AT, mucous membranes moist, bilateral sclera anicteric Cardiovascular: regular rate and rhythm, S1/S2 present, no murmurs appreciated Pulmonary: clear to auscultation bilaterally, no rales/rhonchi/wheezes Abdominal: soft, non-tender, non-distended, no rebound/guarding, normal bowel sounds present Musculoskeletal: normal ROM, no peripheral edema Skin: warm and dry, intact, no rashes Neuro: CN II-XII intact, no focal deficits Objective Labs 02/28/25 04:40 02/28/25 04:40 Labs: Laboratory Results - last 24 hr 02/26/25 02/26/25 02/27/25 08:15 18:00 06:24 WBC 7.7 RBC 5.26 Hgb 15.9 Hct 46.7 MCV 89 MCH 30.2 MCHC 34.0 RDW Std Deviation 45.8 H Plt Count 314 D Neut % (Auto) 63 Lymph % (Auto) 28 [place] % (Auto) 5 Eos % (Auto) 2 Baso % (Auto) 1 Neut # (Auto) 4.9 Lymph # (Auto) 2.2 [place] # (Auto) 0.4 Eos # (Auto) 0.2 Baso # (Auto) 0.1 Immature Gran # (Auto) 0.02 H Absolute Nucleated RBC 0.00 Immature Gran % 0 Nucleated RBC % 0 Sodium 143 Potassium 3.6 Chloride 108 H Carbon Dioxide 26.6 Anion Gap 8 BUN 11 Creatinine 0.9 Estim Creat Clear Calc 110.9 eGFR > 60 BUN/Creatinine Ratio 12 Glucose 104 Calculated Osmolality 284 Calcium 8.6 Corrected Calcium 8.6 Phosphorus 3.0 Total Bilirubin 1.1 AST 18 ALT 18 Alkaline Phosphatase 120 H Total Protein 6.9 Albumin 4.4 Globulin 2.5 Albumin/Globulin Ratio 1.8 TSH 1.08 0.64 Quality Measures Quality Measures none Assessment & Plan Assessment Current Active Medications: Generic Name Dose Route Start Last Admin Trade Name Freq PRN Reason Stop Dose Admin Acetaminophen 650 mg 02/25/25 18:00 Acetaminophen 325 Mg Tablet PO 03/27/25 17:59 Q6H PRN PAIN OR FEVER > 100.4 Aspirin 81 mg 02/25/25 18:00 02/27/25 09:08 Aspirin Ec 81 Mg Tabec PO 03/27/25 17:59 81 mg QDAY YISSLE Administration Atorvastatin Calcium 80 mg 02/25/25 21:00 02/26/25 20:27 Atorvastatin Calcium 20 Mg Tablet PO 03/27/25 20:59 80 mg HS YISSEL Administration Clopidogrel Bisulfate 75 mg 02/26/25 09:00 02/27/25 09:08 Clopidogrel Bisulfate 75 Mg Tablet PO 03/28/25 08:59 75 mg QDAY YISSEL Administration Nifedipine 60 mg 02/27/25 10:15 Nifedipine Xl 30 Mg Tabcr PO 03/29/25 10:14 QDAY YISSEL Ondansetron HCl 4 mg 02/25/25 17:51 Ondansetron Inj 2 Mg/Ml Inj 2 Ml IV 03/27/25 17:50 Q4HR PRN NAUSEA OR VOMITING Plan Romulo Gusman is a 50-year-old male with a past medical history of hypertension not on medications and hyperlipidemia who presents to the ED on 02/25 after experiencing difficulty finding words and fatigue that started two days ago. Found to have acute/subacute infarct in left basal ganglia on CT head and admitted for further work-up. #CVA #Subacute infarct of left basal ganglia Presents with difficulty finding words and fatigue that started two days ago. CT head showed subacute infarct of left basal ganglia. Also presented with hypertensive crisis with BP of 200s/100s upon evaluation in ED and suspect that may have likely played part in patient's presentation. MRI/MRA brain confirmed left basal ganglia infarct. ? In-house neurology consulted, appreciate recommendations ? Aspirin 81 mg daily and plavix 75 mg daily x21 days and then plavix only ? Atorvastatin 80 mg daily ? Follow-up echo, physical therapy ? Neurocheck q4h #Hypertensive crisis #History of hypertension, not on medications Presented with BP 200s/100s and troponins 0.168 with slight uptrend to 0.170 but have downtrended so no longer trending. ? Nifedipine 60 mg PO daily #Hyperlipidemia ? Atorvastatin 80 mg daily as above Hospital management: Disposition: med tele, pending echo Fluids: LR 80 cc/hr Diet: cardiac Lines: PIV DVT prophylaxis: SCDs GI prophylaxis: not indicated CODE STATUS: full code ----- Plan discussed with attending physician Dr. Susana Crane MD PGY-1 Internal Medicine Attending Provider Attestation/Addendum I reviewed labs, imaging, EKG, home medications and prior available records. Face to face evaluation was performed by me. I have personally examined the patient and discussed assessment and plan with the IM team. I reviewed the resident note and agree with the plan with exceptions as below. CVA symptoms, secondary to stroke versus hypertensive encephalopathy Slurred speech Facial droop Left basal ganglia CVA Non-STEMI Hypertensive urgency Start aspirin, Plavix, and atorvastatin Started nifedipine. Monitor BP Trend troponin: Peaked Follow-up MRI: Confirmed the left basal ganglia stroke Follow-up echocardiogram PT/OT evaluation Neurology consulted
[2025-02-27 12:00] VITALS: BP 159/93; PULSE 61; PULSE 65; RESP 19; TEMP 36.2; O2SAT 97
[2025-02-27 16:00] VITALS: BP 143/83; PULSE 62; PULSE 68; RESP 19; TEMP 36.4; O2SAT 96
[2025-02-27 20:00] VITALS: BP 164/101; PULSE 62; PULSE 65; RESP 21; TEMP 36.1; O2SAT 99
[2025-02-27] MEDS: ATORVASTATIN CALCIUM 20 MG TABLET 80 MG PO (20:43)
--- NOTE | 2025-02-27 22:20 | ESPR_ITS ---
Documentation for date of: 02/27/25 Subjective Subjective Interval history: Patient was seen in telemetry today. No weakness, disfluency of language or dysarthria since admission. Tolerating oral diet well. Exam - Neurology Vital Signs Temp Pulse Resp BP Pulse Ox O2 Del Method 97.0 F 62 21 H 164/101 H 99 Room Air 02/27/25 20:00 02/27/25 20:00 02/27/25 20:00 02/27/25 20:00 02/27/25 20:00 02/27/25 20:00 Narrative Exam GENERAL APPEARANCE: Well hydrated, well-nourished in no acute distress. HEENT: Normocephalic, atraumatic, extraocular movements intact. Pupils: Equal reacting to light and accommodation NECK: Supple, no JVD or bruits.. CARDIOVASULAR: Heart: S1, S2 heard, regular without S3-S4 or murmur no rubs or gallops. LUNGS/CHEST: Clear to auscultation bilaterally. No rails, rhonchi, or wheezing. Normal inspection. ABDOMEN: Soft, nontender, with normal bowel sounds. No pulsatile masses. No rebound, rigidity, or guarding. Normal inspection and palpation. EXTREMITIES: Normal inspection and palpation. No edema, clubbing or cyanosis. SKIN: Warm and dry without rashes. Normal inspection. MUSCULOSKELETAL: No cervical, thoracic, lumbar or midline bony tenderness. Normal inspection. NEURO: Alert, awake and oriented x3. Cranial nerves: II through XII grossly intact. Speech and language: Normal with no dysarthria or dysphasia. Motor system: Tone and bulk: Normal: Strength: 5 out of 5 in all 4 extremities; No pronator drift noted. Deep tendon reflexes: 2+ bilaterally symmetrical. Plantar reflex: Downgoing bilaterally. Sensory system: Intact to all modalities of sensation bilaterally. Coordination: Intact to [id number] and [id number] test bilaterally. No ataxia, no dysmetria, or dysdiadochokinesia noted. No intention tremors noted. Gait: Normal. Toe, heel, tandem walk all are normal. [place]: Negative. No signs of meningeal irritation noted. PSYCHIATRIC: Normal mood and affect. Objective Labs 02/27/25 06:24 02/27/25 06:24 Labs: Laboratory Results - last 24 hr 02/27/25 06:24 WBC 7.7 RBC 5.26 Hgb 15.9 Hct 46.7 MCV 89 MCH 30.2 MCHC 34.0 RDW Std Deviation 45.8 H Plt Count 314 D Neut % (Auto) 63 Lymph % (Auto) 28 [place] % (Auto) 5 Eos % (Auto) 2 Baso % (Auto) 1 Neut # (Auto) 4.9 Lymph # (Auto) 2.2 [place] # (Auto) 0.4 Eos # (Auto) 0.2 Baso # (Auto) 0.1 Immature Gran # (Auto) 0.02 H Absolute Nucleated RBC 0.00 Immature Gran % 0 Nucleated RBC % 0 Sodium 143 Potassium 3.6 Chloride 108 H Carbon Dioxide 26.6 Anion Gap 8 BUN 11 Creatinine 0.9 Estim Creat Clear Calc 110.9 eGFR > 60 BUN/Creatinine Ratio 12 Glucose 104 Calculated Osmolality 284 Calcium 8.6 Corrected Calcium 8.6 Phosphorus 3.0 Total Bilirubin 1.1 AST 18 ALT 18 Alkaline Phosphatase 120 H Total Protein 6.9 Albumin 4.4 Globulin 2.5 Albumin/Globulin Ratio 1.8 Assessment & Plan Assessment and plan (1) Basal ganglia infarction: Status: Acute Assessment and plan: MRI brain confirmed left basal ganglia infarction. Continue with aspirin, Plavix and statin. Follow-up with rest of the workup including echocardiogram with bubble study (2) Hypertension: Status: Chronic Assessment and plan: Continue aggressive blood pressure management (3) Hyperlipidemia: Status: Chronic Assessment and plan: Continue with high-dose statin
[2025-02-28] VITALS (10 sets, daily range): BP systolic 140–179; BP diastolic 60–107; PULSE 60–93; RESP 13–23; TEMP 36.1–36.7; O2SAT 94–99; BMI 38.2; BMI 38.0
[2025-02-28 05:55] LABS: Basophils # (Auto) 0.1 Thou/mm3 (0.0-0.2); Basophils % (Auto) 1 % (0-2.5); Eosinophils # (Auto) 0.2 Thou/mm3 (0.0-0.5); Eosinophils % (Auto) 3 % (0-10); Hematocrit 45.2 % (41.0-53.0); Hemoglobin 15.7 g/dL (13.5-16.0); Immature Granulocytes % (Auto) 0 % (0-0); Immature Granulocytes Auto 0.01 Thou/mm3 (0.00-0.00); Lymphocytes # (Auto) 2.6 Thou/mm3 (1.0-4.8); Lymphocytes % (Auto) 31 % (10-50); Mean Corpuscular HGB Conc 34.7 g/dl (31.0-37.0); Mean Corpuscular Hemoglobin 30.7 pg (25.0-35.0); Mean Corpuscular Volume 88 fL (80-100); Monocytes # (Auto) 0.6 Thou/mm3 (0.0-0.8); Monocytes % (Auto) 7 % (0-12); Neutrophils # (Auto) 4.8 Thou/mm3 (1.8-7.7); Neutrophils % (Auto) 58 % (37-80); Nucleated Red Blood Cell % 0 /100 WBC (0); Platelet Count 306 Thou/mm3 (140-440); RDW Standard Deviation 45.5 fL (35.1-43.9); Red Blood Count 5.12 Miln/mm3 (4.50-5.90); White Blood Count 8.3 Thou/mm3 (3.8-10.6)
[2025-02-28 06:32] LABS: Alanine Aminotransferase 19 U/L (10-49); Albumin, Serum 4.3 gm/dL (3.5-5.0); Albumin/Globulin Ratio 1.8 (1.2-2.2); Alkaline Phosphatase 119 U/L (46-116); Anion Gap 11 (7-16); Aspartate Amino Transferase 16 U/L (0-34); BUN/Creatinine Ratio 18 Ratio (12-20); Blood Urea Nitrogen 14 mg/dL (9-23); Calcium 8.6 mg/dL (8.3-10.6); Calcium (Corrected) 8.6 mg/dL (8.5-10.1); Carbon Dioxide 27.2 mMol/L (20.0-31.0); Chloride 104 mMol/L (98-107); Creatinine (Component) 0.8 mg/dL (0.6-1.3); Estimated Creatinine Clearance 125.6 mL/min (>60); Globulin 2.4 gm/dL (2.3-3.5); Glucose 105 mg/dL (74-106); Osmolality,Calculated 283 (275-295); Phosphorous 3.9 mg/dL (2.4-5.1); Potassium 3.4 mMol/L (3.4-5.1); Sodium 142 mMol/L (136-145); Total Protein 6.7 gm/dL (5.7-8.2); eGFR > 60 See Note
[2025-02-28] MEDS: CLOPIDOGREL BISULFATE 75 MG TABLET PO (08:54)
[2025-02-28] MEDS: LOSARTAN POTASSIUM 25 MG TABLET PO (08:54)
[2025-02-28] MEDS: ASPIRIN EC 81 MG TABEC PO (08:54)
--- NOTE | 2025-02-28 09:20 | ECHO_ITS ---
Transthoracic Echo Report Ht (in): 66 Wt (lb): 237 Exam Location: Portable Status: Inpatient [employer] Counterperson: SHERRELL Mccain^^^^ Indications: Procedure Performed: BP: / HR: 64 Technical Quality: Fair MEASUREMENTS (Male / Female) Normal Values 2D ECHO LV Diastolic Diameter PLAX 5.9 cm 4.2 - 5.9 / 3.9 - 5.3 cm LV Systolic Diameter PLAX 4.0 cm IVS Diastolic Thickness 1.0 cm 0.6 - 1.0 / 0.6 - 0.9 cm LVPW Diastolic Thickness 0.9 cm 0.6 - 1.0 / 0.6 - 0.9 cm LV Relative Wall Thickness 0.3 LVOT Diameter 1.8 cm Aortic Root Diameter 3.7 cm LA Systolic Diameter LX 3.0 cm 3.0 - 4.0 / 2.7 - 3.8 cm LV Ejection Fraction MOD BP 47.4 % >= 55 % LV Cardiac Index MOD BP 2546.9 cm?/min?m? LV Ejection Fraction MOD 4C 52.5 % LV Cardiac Index MOD 4C 4170.2 cm?/min?m? LV Ejection Fraction 4C AL 52.8 % LV Cardiac Index 4C AL 4347.7 cm?/min?m? LV Ejection Fraction MOD 2C 43.3 % LV Cardiac Index MOD 2C 1550.5 cm?/min?m? LV Ejection Fraction 2C AL 47.3 % LV Cardiac Index 2C AL 1713.0 cm?/min?m? LA Volume Index 23.5 cm?/m? 16 - 28 cm?/m? DOPPLER AV Peak Velocity 114.5 cm/s AV Peak Gradient 5.2 mmHg AV Mean Gradient 2.5 mmHg AV Velocity Time Integral 19.5 cm LVOT Peak Velocity 65.8 cm/s LVOT Peak Gradient 1.7 mmHg LVOT Velocity Time Integral 14.6 cm LVOT Cardiac Index 1039.8 cm?/min?m? AV Area Cont Eq vti 1.9 cm? AV Area Cont Eq pk 1.5 cm? MV Area PHT 3.4 cm? Mitral E Point Velocity 42.1 cm/s Mitral A Point Velocity 58.3 cm/s Mitral E to A Ratio 0.7 LV E' Lateral Velocity 6.3 cm/s Mitral E to LV E' Lateral Ratio 6.6 LV E' Septal Velocity 5.4 cm/s Mitral E to LV E' Septal Ratio 7.8 TR Peak Velocity 207.0 cm/s TR Peak Gradient 17.1 mmHg PV Peak Velocity 103.0 cm/s PV Peak Gradient 4.2 mmHg RVOT Peak Velocity 62.8 cm/s FINDINGS Left Ventricle The left ventricular ejection fraction is mildly decreased, estimated at 45- 50%. Regional wall motion abnormalities are present. There is grade I diastolic dysfunction of the left ventricle (impaired relaxation pattern). Right Ventricle The right ventricle is normal in size and systolic function. The estimated right ventricular systolic pressure, 20 mmHg. Left Atrium The left atrium is normal by two-dimensional, color flow and Doppler imaging with no structural abnormalities, no thrombus formation present. Right Atrium The right atrium is normal by two-dimensional imaging, color flow and Doppler imaging with no structural abnormalities, no thrombus formation present. Atrial Septum The interatrial septum is normal to color flow Doppler and agitated saline imaging. Aorta The aorta is normal by two-dimensional, color flow and Doppler interrogation. Mitral Valve Mild mitral regurgitation. Mild mitral annular calcification. Aortic Valve The aortic valve is trileaflet and normal by two-dimensional, color flow and Doppler interrogation. There is no significant aortic valve regurgitation. Tricuspid Valve There is mild tricuspid valve regurgitation. Pulmonic Valve Trivial pulmonic valve regurgitation. Vessels The pulmonary artery appears normal. The inferior vena cava pulmonary and hepatic veins appear normal. Pericardium The pericardium is normal by two-dimensional imaging. There is no significant pericardial effusion. CONCLUSIONS indication: Stroke w/ Bubble Mildly dilated left atrium. Dilated left ventricle with evidence of mild to moderate global hypokinesis ejection fraction approximately 40 to 45%. IAS is normal to color flow Doppler and agitated saline imaging. Negative bubble study no evidence of patent foramen ovale RV appears normal with RVSP 20 mmHg Mild tricuspid valve regurgitation. Mild mitral annulus calcification with evidence of mild mitral regurgitation. Barbara Forde (Electronically Signed) Final Date: 28 Feb 2025 16:58
--- NOTE | 2025-02-28 11:05 | PC.SS ---
Patient Romulo Gusman is a 50 Year old male admitted for Ischemic Stroke. SS met with patient at bedside to discuss discharge plan. Patient reports he lives at home with his , Carole Gusman Patient reports she is his surrogate decision maker, [phone]. Patient reports he does not utilize any source of DME to assist with ambulation, patient is able to complete all ADL's independently. Choice of pharmacy is [facility].PCP is Mookie Arteaga. At time of discharge patient would like to return back home, his will provide transportation. Discharge plan Home Next of Kin;
--- NOTE | 2025-02-28 11:14 | PC.SS ---
SS follow up note; Patient is pending an Echo. Patient will discharge back home when medically cleared.
--- NOTE | 2025-02-28 11:32 | PD.RESPRO ---
Documentation for date of: 02/28/25 Subjective Subjective Interval history: Patient was seen and examined by the bedside. No acute overnight events. Patient reports improvement of speech. Tolerates oral diet well. Denies cough, weakness, dizziness. Continue to receive BP medications. Patient was recommended to pursue work up for sleep apnea. Was educated on lifestyle modifications. Exam Vital Signs Temp Pulse Resp BP Pulse Ox O2 Del Method 96.9 F 93 23 H 154/96 H 94 L Room Air 02/28/25 08:00 02/28/25 08:54 02/28/25 08:00 02/28/25 08:54 02/28/25 08:00 02/28/25 08:00 Narrative Exam Gen: Well-developed and well-nourished. HEENT: NCAT, PERRLA, EOMI, MMM, anicteric conjunctivae. CVS: normal S1 and S2. RRR. No M/R/G. Resp: CTA B/L. No rhonchi, rales, crackles or wheezing. Abd: soft, non-tender, non-distended. BS+ in all 4 quadrants. MSK: Good ROM in BUE & BLE. No edema or rash. Neuro: Alert, awake and oriented x3. Cranial nerves: II through XII grossly intact. Speech and language: Normal with no dysarthria or dysphasia. Motor system: Tone and bulk: Normal: Strength: 5 out of 5 in all 4 extremities; No pronator drift noted. Deep tendon reflexes: 2+ bilaterally symmetrical. Plantar reflex: Downgoing bilaterally. Sensory system: Intact to all modalities of sensation bilaterally. Coordination: Intact to myezxv-nyen-khigj and rbvd-dzze-ypss test bilaterally. No ataxia, no dysmetria, or dysdiadochokinesia noted. No intention tremors noted. Gait: Normal. Toe, heel, tandem walk all are normal. Romberg: Negative. No signs of meningeal irritation noted. Psych: appropriate mood and affect. Objective Labs 02/28/25 04:40 02/28/25 04:40 Labs: Laboratory Results - last 24 hr 02/28/25 04:40 WBC 8.3 RBC 5.12 Hgb 15.7 Hct 45.2 MCV 88 MCH 30.7 MCHC 34.7 RDW Std Deviation 45.5 H Plt Count 306 Neut % (Auto) 58 Lymph % (Auto) 31 [place] % (Auto) 7 Eos % (Auto) 3 Baso % (Auto) 1 Neut # (Auto) 4.8 Lymph # (Auto) 2.6 [place] # (Auto) 0.6 Eos # (Auto) 0.2 Baso # (Auto) 0.1 Immature Gran # (Auto) 0.01 H Absolute Nucleated RBC 0.00 Immature Gran % 0 Nucleated RBC % 0 Sodium 142 Potassium 3.4 Chloride 104 Carbon Dioxide 27.2 Anion Gap 11 BUN 14 Creatinine 0.8 Estim Creat Clear Calc 125.6 eGFR > 60 BUN/Creatinine Ratio 18 Glucose 105 Calculated Osmolality 283 Calcium 8.6 Corrected Calcium 8.6 Phosphorus 3.9 Total Bilirubin 1.0 AST 16 ALT 19 Alkaline Phosphatase 119 H Total Protein 6.7 Albumin 4.3 Globulin 2.4 Albumin/Globulin Ratio 1.8 Quality Measures Quality Measures VTE prophylaxis Assessment & Plan Assessment Current Active Medications: Generic Name Dose Route Start Last Admin Trade Name Freq PRN Reason Stop Dose Admin Acetaminophen 650 mg 02/25/25 18:00 Acetaminophen 325 Mg Tablet PO 03/27/25 17:59 Q6H PRN PAIN OR FEVER > 100.4 Aspirin 81 mg 02/25/25 18:00 02/28/25 08:54 Aspirin Ec 81 Mg Tabec PO 03/27/25 17:59 81 mg QDAY YISSEL Administration Atorvastatin Calcium 80 mg 02/25/25 21:00 02/27/25 20:43 Atorvastatin Calcium 20 Mg Tablet PO 03/27/25 20:59 80 mg HS YISSEL Administration Clopidogrel Bisulfate 75 mg 02/26/25 09:00 02/28/25 08:54 Clopidogrel Bisulfate 75 Mg Tablet PO 03/28/25 08:59 75 mg QDAY YISSEL Administration Losartan Potassium 25 mg 02/28/25 09:00 02/28/25 08:54 Losartan Potassium 25 Mg Tablet PO 03/30/25 08:59 25 mg QDAY YISSEL Administration Nifedipine 30 mg 02/28/25 09:45 Nifedipine Xl 30 Mg Tabcr PO 03/30/25 09:44 QDAY IYSSEL Ondansetron HCl 4 mg 02/25/25 17:51 Ondansetron Inj 2 Mg/Ml Inj 2 Ml IV 03/27/25 17:50 Q4HR PRN NAUSEA OR VOMITING Plan The patient is a 50-year-old male with a past medical history of hypertension not on medications and hyperlipidemia who presents to the ED on 02/25 after experiencing difficulty finding words and fatigue that started two days ago. Found to have acute/subacute infarct in left basal ganglia on CT head and admitted for further work-up. #CVA #Subacute ischemic stroke of left basal ganglia Patient has a history of hypertension. His symptoms, difficulty finding words and fatigue started a few days ago. CT head showed subacute infarct of left basal ganglia. He had hypertensive emergency BP of 200s/100s upon evaluation in ED. MRI/MRA brain showed left basal ganglia infarct. A1c 5.5%. Echo was negative for PFO, showed EF 40-45% Plan: ? Continue with MARTIN (aspirin 81 mg and plavix 75 mg for 21 days) and then with plavix only ? Atorvastatin 80 mg daily ? Pending echo - Physical therapy ? Neurocheck q4h - continue with BP management - obtain work up for sleep apnea (sleep study) outpatient - follow-up with managed security sales consultant outpatient #Hypertensive crisis #History of hypertension, not on medications #Hyperlipidemia - management per primary team Plan of care discussed with attending Dr. Willis. Farida Borges MD, PGY 1. Attending Provider Attestation/Addendum Patient was seen and examined at the bedside and I agree with the residents findings, assessment and plan of care. Discussed in detail with patient and family the results of her stroke work. Lifestyle changes and compliance on medication intake and the need for sleep study as an outpatient. Stable for discharge from neurology standpoint on aspirin and Plavix and statin.
[2025-02-28] MEDS: NIFEdipine XL 30 MG TABCR PO (15:54)
--- NOTE | 2025-02-28 16:42 | PD.ADDPROG ---
Addendum Progress Note Addendum Date of report being addended: 02/28/25 Narrative: Attending's attestation: I reviewed labs, imaging, EKG, home medications and prior available records. Face to face evaluation was performed by me. I have personally examined the patient and discussed assessment and plan with the IM team. I reviewed the resident note and agree with the plan with exceptions as below. CVA symptoms, secondary to stroke versus hypertensive encephalopathy Slurred speech Facial droop Left basal ganglia CVA Non-STEMI Hypertensive urgency Continue aspirin, Plavix, and atorvastatin Continue nifedipine. Monitor BP Trend troponin: Peaked Follow-up MRI: Confirmed the left basal ganglia stroke Follow-up echocardiogram PT/OT evaluation: Okay to go home Outpatient follow-up with neurology Time spent is 40 minutes. More than 50% of the time was spent on patient education and coordination of care.
--- NOTE | 2025-02-28 18:23 | PD.RESDS ---
Planned Discharge Date 02/28/25 DS: Providers Provider Date of admission: 02/25/25 17:52 Primary care physician: Mookie Arteaga MD Admitting Provider: Cosmo Meza MD Attending Provider on Admission: Cosmo Meza MD Consults: 02/25/25 17:59 Consult to Neurology / Tele-Neurology Routine Comment: Subacute ischemic stroke Consulting Provider: Fernando Willis 02/25/25 18:00 Referral Physical Therapy Routine Comment: Physician Instructions: Referral Speech Therapy Routine Comment: Attending Provider on DC: Cosmo Meza MD Discharging Provider: Cosmo Meza MD DS: Diagnosis Problem List Completed Was Problem List Reviewed/Reconciled?: Yes Hospital Course Hospital Course Hospital course: 50-year-old male with past medical history of hypertension (not currently on any medications) and hyperlipidemia who was admitted to the hospital on 02/25/2025 for stroke rule out after he was having difficulty finding. In the ED patient came in with complaints of slurred speech with some right sided facial numbness and aphasia for 1 week. Neurology was consulted and had CT showed an acute infection involving the left basal ganglia. Patient was started on aspirin 81 mg daily, Plavix 25 mg daily, and statin. MRI did confirm the acute ischemic infarction of the left basal ganglia therefore neurology recommended to continue DAPT for 21 days and after which she was Plavix with atorvastatin. Patient's symptoms improved throughout the hospital stay. Patient's echocardiogram done on the day of discharge showed no PFO, but EF 40-45%. At the time of discharge patient was stable enough to be discharged home. Discharge plan: Please follow-up with your primary care physician within 1 week upon discharge Please follow-up with neurologist Dr Willis in 1 to 2 weeks after discharge Follow up with traveling sales executive outpatient for HFmrEF Please continue taking aspirin 81 mg and Plavix 75 mg once every day until 03/18/2025. On 03/19/2025 continue taking Plavix 75 mg once a day and discontinue aspirin 81 mg. You have been started on atorvastatin 80 mg at bedtime You have also been started on losartan 25 mg daily and nifedipine 30 mg daily. Please come back to the ER if symptoms persist or worsen. 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) #Hypertensive crisis #Hyperlipidemia #History of hypertension, not on medications Status at Discharge Overall status at discharge: patient is progressing back to baseline Time Spent with Patient Time attestation: Total time spent providing and/or coordinating discharge services:>35 min Time spent: Greater than 30 minutes Exam Vital Signs Temp Pulse Resp BP Pulse Ox O2 Del Method 97.1 F 71 22 H 156/96 H 95 Room Air 02/28/25 18:16 02/28/25 18:16 02/28/25 18:16 02/28/25 18:16 02/28/25 18:16 02/28/25 18:16 Narrative Exam General: A/O x3, no acute distress, well-nourished, well-developed Eyes: PERRL, EOMI. Anicteric, vision grossly intact. Ears: No ear pain, no ear discharge, Hearing grossly intact. Nose: No nasal discharge. Mouth/Throat: Moist mucous membranes, no redness, no lesions. Neck: Neck supple, non-tender, no cervical lymphadenopathy. Lungs: Clear DARWIN to auscultation and percussion, No accessory muscle use. Cardio: Normal S1/S2, regular rhythm, no murmurs, no JVD Abdomen: Soft, non-tender, no palpable masses, peristalsis present, no guarding or rebound. Extremities: Symmetrical, no significant deformities, no peripheral edema , non-tender, peripheral pulses presents. Skin: No rashes, no lesions, warm to touch. Neuro: No focal neurological deficits. Psych: Cooperative, appropriate mood and effect. Motor and sensory intact. Discharge Plan Plan Patient Disposition: HOME (Self Care) Patient condition on transfer: Stable Care Plan Goals: Please follow-up with your primary care physician within 1 week upon discharge Please follow-up with neurologist Dr Willis in 1 to 2 weeks after discharge Please continue taking aspirin 81 mg and Plavix 75 mg once every day until 03/18/2025. On 03/19/2025 continue taking Plavix 75 mg once a day and discontinue aspirin 81 mg. You have been started on atorvastatin 80 mg at bedtime You have also been started on losartan 25 mg daily and nifedipine 30 mg daily. Please come back to the ER if symptoms persist or worsen. Prescriptions/Referrals Prescriptions/Med Rec: New aspirin 81 mg tablet,delayed release (DR/EC) 81 mg PO QDAY Qty: 20 0RF clopidogrel 75 mg tablet 75 mg PO QDAY Qty: 30 0RF atorvastatin 80 mg tablet 80 mg PO QPM Qty: 30 0RF losartan 25 mg tablet 25 mg PO QDAY Qty: 30 0RF nifedipine 30 mg tablet extended release 30 mg PO QDAY Qty: 30 0RF No Action No Known Home Medications Referrals: Mookie Arteaga MD [Primary Care Provider] - Fernando Willis MD [Physician] - Patient/Caregiver Discharge Instructions Other Discharge Activity Instructions:: Please follow-up with your primary care physician within 1 week upon discharge Please follow-up with neurologist Dr Willis in 1 to 2 weeks after discharge Please continue taking aspirin 81 mg and Plavix 75 mg once every day until 03/18/2025. On 03/19/2025 continue taking Plavix 75 mg once a day and discontinue aspirin 81 mg. You have been started on atorvastatin 80 mg at bedtime You have also been started on losartan 25 mg daily and nifedipine 30 mg daily. Please come back to the ER if symptoms persist or worsen. Education Materials: Effects of a Stroke on the ..., Discharge Instructions for Stroke Print Language: Persian Stand Alone Forms: [email or web address] Award Info., Patient Portal Info Letter Discharge Order Discharge Orders: Discharge (Routine); Ordered 02/28/25 Ordered By: Peewee Chaudhary Quality Discharge Quality Measures VTE prophylaxis Attestestation MD Attestation I reviewed labs, imaging, EKG, home medications and prior available records. Face to face evaluation was performed by me. I have personally examined the patient and discussed assessment and plan with the IM team. I reviewed the resident note and agree with the plan with exceptions as below. CVA symptoms, secondary to stroke versus hypertensive encephalopathy Slurred speech Facial droop Left basal ganglia CVA Non-STEMI Hypertensive urgency Continue aspirin, Plavix, and atorvastatin Continue nifedipine. Monitor BP Trend troponin: Peaked Follow-up MRI: Confirmed the left basal ganglia stroke Follow-up echocardiogram PT/OT evaluation: Okay to go home Outpatient follow-up with neurology Time spent is 40 minutes. More than 50% of the time was spent on patient education and coordination of care.
== END 2025-02-28 18:45 | disposition home or self-care (01) | DRG 65 ==
LOC: SERX 18:07 → SERHOLD 18:13 → S2NX 20:25
PROVIDERS: Nurse Practitioner Family; Admitting Provider Student in an Organized Health Care Education/Training Program; Emergency Provider Emergency Medicine; PCP Family Medicine; Visit Provider Student in an Organized Health Care Education/Training Program
DX: I63.89 Other cerebral infarction (principal); I50.20 Unspecified systolic (congestive) heart failure; I67.4 Hypertensive encephalopathy; E78.5 Hyperlipidemia, unspecified; R47.01 Aphasia; I11.0 Hypertensive heart disease with heart failure; I16.0 Hypertensive urgency; R29.810 Facial weakness; F17.210 Nicotine dependence, cigarettes, uncomplicated; Z79.02 Long term (current) use of antithrombotics/antiplatelets; Z79.82 Long term (current) use of aspirin; Z79.899 Other long term (current) drug therapy
CPT/HCPCS: 36415; 70450; 70544; 80053; 80061; 80307; 81001; 83036; 83735; 83880; 84100; 84443; 84484; 85025; 85610; 85730; 92610; 93005; 93306; 96105; 99291; J0360; J7120; A9270

== ENCOUNTER → 2025-05-18 | Day surgery (SDC) | payer OTHER, SELFPAY ==
[2025-05-16 16:18] VITALS: BMI 36.0
[2025-05-17 15:15] LABS: Basophils # (Auto) 0.1 Thou/mm3 (0.0-0.2); Basophils % (Auto) 1 % (0-2.5); Eosinophils # (Auto) 0.3 Thou/mm3 (0.0-0.5); Eosinophils % (Auto) 4 % (0-10); Hematocrit 43.7 % (41.0-53.0); Hemoglobin 15.6 g/dL (13.5-16.0); Immature Granulocytes Auto 0.02 Thou/mm3 (0.00-0.00); Lymphocytes # (Auto) 2.9 Thou/mm3 (1.0-4.8); Lymphocytes % (Auto) 37 % (10-50); Mean Corpuscular HGB Conc 35.7 g/dl (31.0-37.0); Mean Corpuscular Hemoglobin 30.2 pg (25.0-35.0); Mean Corpuscular Volume 85 fL (80-100); Monocytes # (Auto) 0.5 Thou/mm3 (0.0-0.8); Monocytes % (Auto) 6 % (0-12); Neutrophils # (Auto) 4.2 Thou/mm3 (1.8-7.7); Neutrophils % (Auto) 52 % (37-80); Nucleated Red Blood Cell # 0.00 Thou/mm3 (0.00-0.00); Nucleated Red Blood Cell % 0 /100 WBC (0); Platelet Count 299 Thou/mm3 (140-440); RDW Standard Deviation 42.8 fL (35.1-43.9); Red Blood Count 5.16 Miln/mm3 (4.50-5.90); White Blood Count 8.0 Thou/mm3 (3.8-10.6)
[2025-05-17 15:23] LABS: Anion Gap 10 (7-16); BUN/Creatinine Ratio 7 Ratio (12-20); Blood Urea Nitrogen 7 mg/dL (9-23); Calcium 9.1 mg/dL (8.3-10.6); Carbon Dioxide 27.9 mMol/L (20.0-31.0); Chloride 105 mMol/L (98-107); Creatinine (Component) 1.0 mg/dL (0.6-1.3); Estimated Creatinine Clearance 100.6 mL/min (>60); Glucose 116 mg/dL (74-106); Osmolality,Calculated 283 (275-295); Potassium 3.6 mMol/L (3.4-5.1); Sodium 143 mMol/L (136-145); eGFR > 60 See Note
[2025-05-17 15:27] LABS: INR 1.0 (0.9-1.3); Partial Thromboplastin Time 30.6 Seconds (22.0-36.0); Prothrombin Time 11.2 Seconds (9.0-12.2)
[2025-05-18] VITALS (12 sets, daily range): BP systolic 119–172; BP diastolic 10–114; PULSE 65–88; RESP 14–19; TEMP 36.4–36.5; O2SAT 91–95
[2025-05-18] MEDS: hydrALAZINE INJ 20 MG/ML VIAL 10 MG IVP (09:23)
--- NOTE | 2025-05-19 09:11 | PD.CARDCATH ---
Cardiac Cath Procedure Procedure Name Date of procedure: 05/18/25 DIRECTOR ACUTE: Denis Cedeno MD PROCEDURE PERFORMED: 1. Left heart and right heart cardiac catheterization including right, left coronary angiograms and left ventriculogram - CPT 77844 2. Ultrasound-guided access of the right radial artery and right femoral vein - CPT 57065 3. Conscious sedation for 30 minutes - CPT 94730 Procedure Narrative HISTORY AND INDICATIONS: A 50 year old male patient with past medical history of CVA - subacute left basal ganglia ischemic stroke 02/2025, Systolic CHF, longstanding uncontrolled HTN, hyperlipidemia, obesity. Patient was reffered to our office by PCP for cardiac evaluation as he was admitted in [facility] for a stroke. Patient had ischemic cardiac work up and NST showed low ejection fraction and had decreased intake in the inferior and inferior lateral segments which improved with stress indicating possible diaphragm attenuation versus an infarct. Given his low ejection fraction with new onset heart failure and the stroke patient will need further ischemic evaluation and would recommend the right and left heart cardiac catheterization. Patient was brought in for an elective cardiac catheterization. Discussed with patient risks, benefits and alternatives of performing left with coronary angiogram including the risks of bleeding, heart rate, stroke and with the procedure. Patient understands the risks and is willing to undergo the procedure. Consent provided for the same. H&P updated and consent was signed prior to the procedure. DESCRIPTION OF PROCEDURE: The patient was brought to the cardiac catheterization lab and all asceptic precautions were followed. Patient was given 1 Mg of Versed and 50 mcg of fentanyl for moderate conscious sedation. 2 mL of lidocaine was given in the right wrist. The right radial artery was accessed via the ultrasound guidance as well as micropuncture technique. A 6 [place] glide sheath was introduced. Patient already had right antecubital vein access placed. Right antecubital vein access was cleaned appropriately and all aseptic precautions was followed and exchanged into a micropuncture catheter with the help of a micropuncture wire and then introduced and a 7 [place] sheath into the antecubital vein access with the help of a J-wire. A 7 [place] yocha dehe catheter was used to direct catheter into the right atrium with inflated balloon. Serial measurements of right atrium, right ventricle, pulmonary artery and pulmonary capillary wedge were taken severely with normal respiration as well as at end expiration as noted below. We then used a 6 [place] TIG 4 catheter to perform the left and right coronary angiogram as well as a left ventriculogram which showed the following findings. LHC findings: 1. Left ventricular ejection fraction was 40 to 45% % without any regional wall motion abnormalities. LVEDP was normal at 12 mmHg. There was no significant transvalvular aortic gradient. 2. Right dominant circulation left main artery is a large-caliber vessel without any significant stenosis. 3. LAD is a large sized artery with 30% stenosis of mid segment. Medium size diagonal and does not show any significant disease. mild 20% disease of ostial diagonal 1 4. LCx is a large sized artery with medium OM1 and small OM2 without any significant disease. 5. RCA is a large artery with nedium RPDA and RPL without any significant disease. RHC findings: Mean right atrial pressure was 7 mmHg. Right atrial pressure was 9/7 mmHg. Pulmonary artery pressure was 26/11 mmHg with a mean of 18 mmHg. Mean pulmonary capillary wedge pressure was 8 mmHg. TPG was 10 mmHg Pulmonary artery PA saturation was 76.7%.? Arterial saturation was 94.2% on room air. Cardiac output was 7.04 L/min and cardiac index was normal at 3.27 L/min/m? A radial band was used to achieve the hemostasis of the right radial artery access and manual hemostasis for the right antecubital vein. Patient will be monitored in the cardiac automatic maintainer for the next 2 to 3 hours and will be sent to the telemetry floor. Patient recommended to follow-up with me in the office within 7 days after discharge. Complications: None Specimens: None Blood loss: Estimated 5 ml Summary/findings: 1. Non ischemic cardiomyopathy: LHC showed mild CAD with 30% stenosis of mid LAD. Rest of coronaries without any angiographically significant obstruction and few luminal irregularities. 2. LVEF was 40 to 45% 3. LVEDP normal at 12 mm hg. No significant transvalvular aortic gradient. 4. Normal right heart pressures with mean RA of 7 mm hg, mean PA of 18 mmhg and mean PCWP at 8 mm hg. Recommendations: 1. Recommend aggressive medical treatment along with aggressive risk factor modification. 2. Continue aggressive goal-directed medical therapy 3. Recommended not to lift more than 5 pounds of weight for the next 7 days and to follow-up with me in the office. Denis Cedeno MD Interventional Cardiology.
[2025-05-20 09:10] LABS: O2 Saturation (Cath Lab) 77 % (91-98); O2 Saturation (Cath Lab) 94 % (91-98); Puncture Site Aortic; Puncture Site Pulmonary Artery
== END | disposition home or self-care (01) ==
PROVIDERS: PCP Family Medicine; Referring Provider Internal Medicine Cardiovascular Disease; Visit Provider Internal Medicine Cardiovascular Disease
PROC: (CPT 93460; principal; 2025-05-18 10:00)
DX: I25.10 Atherosclerotic heart disease of native coronary artery without angina pectoris (principal); I50.22 Chronic systolic (congestive) heart failure; E66.9 Obesity, unspecified; E78.5 Hyperlipidemia, unspecified; I11.0 Hypertensive heart disease with heart failure; Z86.73 Personal history of transient ischemic attack (TIA), and cerebral infarction without residual deficits; Z01.810 Encounter for preprocedural cardiovascular examination; Z79.02 Long term (current) use of antithrombotics/antiplatelets; Z79.899 Other long term (current) drug therapy; Z68.36 Body mass index [BMI] 36.0-36.9, adult
CPT/HCPCS: 93460; 36415; 80048; 82810; 85025; 85610; 85730; 93005; 99152; 99153; A4649; C1769; C1887; C1894; J0360; J0461; J1643; J2250; J2310; J2371; J3010; J3490; Q9967; A9270; J2305

== ENCOUNTER 2025-06-02 14:26 | Outpatient (CLI) | payer OTHER, SELFPAY ==
--- NOTE | 2025-06-01 15:00 | EKG_ITS ---
[facility] Test Date: 2025-06-01 Pat Name: THEODORE WHITTEN Department: Room: - Gender: Male Gold Stamper: ABILIO : 1975 Requested By: Denis Cedeno Order Number: [id number] Reading MD: Denis Cedeno Measurements Intervals [place] Rate: 74 P: 45 CO: 193 QRS: 45 QRSD: 111 T: 47 QT: 373 QTc: 416 Interpretive Statements SINUS RHYTHM MODERATE INTRAVENTRICULAR CONDUCTION DELAY [110+ ms QRS DURATION] NONSPECIFIC T-WAVE ABNORMALITY Compared to ECG 05/17/2025 15:28:01 Intraventricular conduction delay now present Myocardial infarct finding no longer present Possible ischemia no longer present T-wave abnormality still present /store/S0/[id number]
[2025-06-01 15:21] LABS: Basophils # (Auto) 0.1 Thou/mm3 (0.0-0.2); Basophils % (Auto) 1 % (0-2.5); Eosinophils # (Auto) 0.3 Thou/mm3 (0.0-0.5); Eosinophils % (Auto) 4 % (0-10); Hematocrit 45.1 % (41.0-53.0); Hemoglobin 15.7 g/dL (13.5-16.0); Immature Granulocytes Auto 0.03 Thou/mm3 (0.00-0.00); Lymphocytes # (Auto) 3.4 Thou/mm3 (1.0-4.8); Lymphocytes % (Auto) 41 % (10-50); Mean Corpuscular HGB Conc 34.8 g/dl (31.0-37.0); Mean Corpuscular Hemoglobin 30.3 pg (25.0-35.0); Mean Corpuscular Volume 87 fL (80-100); Monocytes # (Auto) 0.6 Thou/mm3 (0.0-0.8); Monocytes % (Auto) 7 % (0-12); Neutrophils # (Auto) 3.9 Thou/mm3 (1.8-7.7); Neutrophils % (Auto) 47 % (37-80); Nucleated Red Blood Cell # 0.00 Thou/mm3 (0.00-0.00); Nucleated Red Blood Cell % 0 /100 WBC (0); Platelet Count 301 Thou/mm3 (140-440); RDW Standard Deviation 45.1 fL (35.1-43.9); Red Blood Count 5.18 Miln/mm3 (4.50-5.90); White Blood Count 8.2 Thou/mm3 (3.8-10.6)
[2025-06-01 15:35] LABS: INR 1.0 (0.9-1.3); Partial Thromboplastin Time 30.0 Seconds (22.0-36.0); Prothrombin Time 10.9 Seconds (9.0-12.2)
[2025-06-01 15:39] LABS: Anion Gap 9 (7-16); BUN/Creatinine Ratio 7 Ratio (12-20); Blood Urea Nitrogen 7 mg/dL (9-23); Calcium 9.0 mg/dL (8.3-10.6); Carbon Dioxide 28.4 mMol/L (20.0-31.0); Chloride 104 mMol/L (98-107); Creatinine (Component) 1.0 mg/dL (0.6-1.3); Glucose 103 mg/dL (74-106); Osmolality,Calculated 279 (275-295); Potassium 3.6 mMol/L (3.4-5.1); Sodium 141 mMol/L (136-145); eGFR > 60 See Note
[2025-06-02] VITALS (14 sets, daily range): BP systolic 150–228; BP diastolic 101–153; PULSE 69–93; RESP 15–21; TEMP 36.7; O2SAT 90–96
--- NOTE | 2025-06-02 16:00 | ECHO_ITS ---
Transesophageal Echo Report Ht (in): 67 Wt (lb): 235 Exam Location: Echo Lab Status: Outpatient [facility] Services Coordinator: Delores Negro Indications: Procedure Performed: BP: / HR: Technical Quality: Technically difficult study FINDINGS Left Ventricle Normal left ventricular size, wall thickness, systolic function with no obvious regional wall motion abnormalities. Normal left ventricular diastolic filling pattern for age. The ejection fraction is visually estimated at 55-60 %. Right Ventricle The right ventricle is normal in size and systolic function. Left Atrium The left atrium is normal by two-dimensional, color flow and Doppler imaging with no structural abnormalities, no thrombus formation present. Right Atrium The right atrium is normal by two-dimensional imaging, color flow and Doppler imaging with no structural abnormalities, no thrombus formation present. Atrial Appendages The left atrial appendage appears normal with no evidence for thrombus. Atrial Septum The interatrial septum appears normal with no evidence of a shunt. Aorta The aorta is normal by two-dimensional, color flow and Doppler interrogation. Mitral Valve The mitral valve is normal by two-dimensional, color flow and Doppler interrogation. Trace mitral regurgitation. Aortic Valve The aortic valve is trileaflet and normal by two-dimensional, color flow and Doppler interrogation. There is no significant aortic valve regurgitation. Tricuspid Valve The tricuspid valve is normal by two-dimensional, color flow and Doppler interrogation. There is trace tricuspid valve regurgitation. Pulmonic Valve The pulmonic valve is normal by two-dimensional, color flow and Doppler interrogation. Vessels The pulmonary artery appears normal. The inferior vena cava pulmonary and hepatic veins appear normal. Pericardium The pericardium is normal by two-dimensional imaging. There is no significant pericardial effusion. CONCLUSIONS Indication: R/O Thrombus and PFO Negative bubble study for ASD and PFO. No LA or NITA thrombus. Normal LV size and wall thickness. Estimated EF at 55-60 %. Normal RV size and function. Trace MR and TR. No pericardial effusion. Denis Cedeno (Electronically Signed) Final Date: 03 June 2025 16:05
[2025-06-02] MEDS: BENZOCAINE 20% (Hurricaine) SPRAY 1 DOSE TOP (16:57)
[2025-06-02] MEDS: fentaNYL CIT INJ 50 mCg/ML AMP 2ML 100 MCG IVP (16:57)
[2025-06-02] MEDS: MIDAZOLAM INJ 1 MG/ML VIAL 2 ML 4.5 MG IVP (16:57)
--- NOTE | 2025-06-02 17:51 | PC.NURSE ---
MD Cedeno aware of Blood pressure, wants patient to double up on his home enteresto medication
== END 2025-06-02 18:00 | disposition home or self-care (01) ==
PROVIDERS: PCP Family Medicine; Referring Provider Internal Medicine Cardiovascular Disease; Visit Provider Internal Medicine Cardiovascular Disease
PROC: (CPT 93312; principal; 2025-06-02 16:00)
DX: I11.0 Hypertensive heart disease with heart failure (principal); I50.22 Chronic systolic (congestive) heart failure; Z01.810 Encounter for preprocedural cardiovascular examination; R94.31 Abnormal electrocardiogram [ECG] [EKG]; E78.5 Hyperlipidemia, unspecified; E66.9 Obesity, unspecified
CPT/HCPCS: 36415; 80048; 85025; 85610; 85730; 93005; 93312; 99152; 99153; J2250; J3010; A9270